=== PATIENT | male | born 1930 | race Caucasian/White ===

== ENCOUNTER 2016-11-01 09:19 | Emergency (ER) | payer MEDICARE ==
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
--- NOTE | 2016-11-01 11:27 | EDDOCDS ---
Physician Documentation [facility] Name: Julio Grant Age: 86 yrs Sex: Male : 1930 Arrival Date: 11/01/2016 Time: 09:19 Bed 13 Private MD: Tyrell Hoover Disposition: 11/01/16 11:03 Discharged to Home/Self Care. Impression: Syncope and collapse - near syncope. - Condition is Stable. - Discharge Instructions: Near-Syncope, Near-Syncope, Fbuz-[id number], Syncope, [id number]. - Medication Reconciliation, Local Pharmacy Hours form. - Follow up: Judi Curtis; When: keepscheduled appointment tomorrow. Follow up: Tyrell Hoover; When: Call to arrange an appointment. - Problem is new. - Symptoms are resolved. Historical: - Allergies: No known drug Allergies; - Home Meds: 1. atenolol 25 mg Oral tab 1 tab once daily 2. furosemide 80 mg Oral tab 1 tab once daily 3. digoxin 125 mcg oral tab 1 tab once daily 4. Crestor 10 mg Oral tab Saturday MWF 5. Coumadin 2 mg Oral tab 1 tab once daily 6. Xalatan 0.005 % Opht drop 1 drop once daily 7. Alphagan P 0.1 % ophthalmic drop 1 drop every 8 hours - PMHx: CAD; - PSHx: Stents, Coronary; Pacemaker Insertion; - Social history: Smoking status: Patient states was never smoker of tobacco. No barriers to communication noted, The patient speaks fluent Romanian, Speaks appropriately for age. - Family history: Not pertinent. - : The pt / caregiver states he / she is on anticoagulants: coumadin. Home medication list is obtained from the patient. - Exposure Risk Screening:: None identified. Vital Signs: 11/01 09:22 BP 159 / 93; Pulse 87; Resp 16; Temp 96.4(T); Pulse Ox 100% on R/A; Weight 64.64 kg / sew 142.51 lbs; Height 5 ft. 8 in. (172.72 cm); Pain 0/10; 11:24 BP 122 / 71; Pulse 85; Resp 20 S; Temp 96(T); Pulse Ox 96% on R/A; ms2 09:22 Body Mass Index 21.67 (64.64 kg, 172.72 cm) sew MDM: 10:22 CT Head Without Contrast Ordered. EDMS 10:58 Financial registration complete. lg Signatures: Dispatcher [employer] EDMS Tati Warner MD MD sd1 Lauro GuidryRN RN ms2 Brandie Pascal, Reg Reg lg Tiffanie Akers RN RN hs1 Roro ManuelRN RN ead MTDD
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
--- NOTE | 2016-11-03 12:27 | EDDOCDS ---
Physician Documentation [facility] Name: Julio Grant Age: 86 yrs Sex: Male : 1930 Arrival Date: 11/01/2016 Time: 09:19 Bed 13 Private MD: Tyrell Hoover Disposition: 11/01/16 11:03 Discharged to Home/Self Care. Impression: Syncope and collapse - near syncope. - Condition is Stable. - Discharge Instructions: Near-Syncope, Near-Syncope, [id number], Syncope, [id number]-[id number]. - Medication Reconciliation, Local Pharmacy Hours form. - Follow up: Judi Curtis; When: keepscheduled appointment tomorrow. Follow up: Tyrell Hoover; When: Call to arrange an appointment. - Problem is new. - Symptoms are resolved. Historical: - Allergies: No known drug Allergies; - Home Meds: 1. atenolol 25 mg Oral tab 1 tab once daily 2. furosemide 80 mg Oral tab 1 tab once daily 3. digoxin 125 mcg oral tab 1 tab once daily 4. Crestor 10 mg Oral tab Saturday MWF 5. Coumadin 2 mg Oral tab 1 tab once daily 6. Xalatan 0.005 % Opht drop 1 drop once daily 7. Alphagan P 0.1 % ophthalmic drop 1 drop every 8 hours - PMHx: CAD; - PSHx: Stents, Coronary; Pacemaker Insertion; - Social history: Smoking status: Patient states was never smoker of tobacco. No barriers to communication noted, The patient speaks fluent [place]inean, Speaks appropriately for age. - Family history: Not pertinent. - : The pt / caregiver states he / she is on anticoagulants: coumadin. Home medication list is obtained from the patient. - Exposure Risk Screening:: None identified. Vital Signs: 11/01 09:22 BP 159 / 93; Pulse 87; Resp 16; Temp 96.4(T); Pulse Ox 100% on R/A; Weight 64.64 kg / sew 142.51 lbs; Height 5 ft. 8 in. (172.72 cm); Pain 0/10; 11:24 BP 122 / 71; Pulse 85; Resp 20 S; Temp 96(T); Pulse Ox 96% on R/A; ms2 09:22 Body Mass Index 21.67 (64.64 kg, 172.72 cm) sew MDM: 10:22 CT Head Without Contrast Ordered. EDMS 10:58 Financial registration complete. lg 13:35 [facility] [place] Payment Agreement was scanned into [employer] and attached to record. lg 14:50 T-Sheet-- Draft Copy was scanned into [employer] and attached to record. gb Signatures: Dispatcher [employer] EDMS Tati Warner MD MD sd1 Lauro GuidryRN RN ms2 Aissatou Euceda, Reg Reg gb Brandie Pascal, Reg Reg lg Tiffanie Akers RN RN hs1 Roro Manuel RN RN ead The chart was reviewed and I authenticate all verbal orders and agree with the evaluation and treatment provided.Attachments: 13:35 [facility] [place] Payment Agreement lg 14:50 T-Sheet-- Draft Copy gb Chart Complete MTDD
--- NOTE | 2016-11-03 12:27 | EDDOCDS ---
Physician Documentation [facility] Name: Julio Grant Age: 86 yrs Sex: Male : 1930 Arrival Date: 11/01/2016 Time: 09:19 Bed 13 Private MD: Tyrell Hoover Disposition: 11/01/16 11:03 Discharged to Home/Self Care. Impression: Syncope and collapse - near syncope. - Condition is Stable. - Discharge Instructions: Near-Syncope, Near-Syncope, Kucv-[id number], Syncope, [id number]-dg-[id number]. - Medication Reconciliation, Local Pharmacy Hours form. - Follow up: Judi Curtis; When: keepscheduled appointment tomorrow. Follow up: Tyrell Hoover; When: Call to arrange an appointment. - Problem is new. - Symptoms are resolved. Historical: - Allergies: No known drug Allergies; - Home Meds: 1. atenolol 25 mg Oral tab 1 tab once daily 2. furosemide 80 mg Oral tab 1 tab once daily 3. digoxin 125 mcg oral tab 1 tab once daily 4. Crestor 10 mg Oral tab Saturday MWF 5. Coumadin 2 mg Oral tab 1 tab once daily 6. Xalatan 0.005 % Opht drop 1 drop once daily 7. Alphagan P 0.1 % ophthalmic drop 1 drop every 8 hours - PMHx: CAD; - PSHx: Stents, Coronary; Pacemaker Insertion; - Social history: Smoking status: Patient states was never smoker of tobacco. No barriers to communication noted, The patient speaks fluent Greenlandic, Speaks appropriately for age. - Family history: Not pertinent. - : The pt / caregiver states he / she is on anticoagulants: coumadin. Home medication list is obtained from the patient. - Exposure Risk Screening:: None identified. Vital Signs: 11/01 09:22 BP 159 / 93; Pulse 87; Resp 16; Temp 96.4(T); Pulse Ox 100% on R/A; Weight 64.64 kg / sew 142.51 lbs; Height 5 ft. 8 in. (172.72 cm); Pain 0/10; 11:24 BP 122 / 71; Pulse 85; Resp 20 S; Temp 96(T); Pulse Ox 96% on R/A; ms2 09:22 Body Mass Index 21.67 (64.64 kg, 172.72 cm) sew MDM: 10:22 CT Head Without Contrast Ordered. EDMS 10:58 Financial registration complete. lg 13:35 [facility] [place] Payment Agreement was scanned into [employer] and attached to record. lg 14:50 T-Sheet-- Draft Copy was scanned into [employer] and attached to record. gb Signatures: Dispatcher [employer] EDMS Tati Warner MD MD sd1 Lauro GuidryRN RN ms2 Aissatou Euceda, Reg Reg gb Brandie Pascal, Reg Reg lg Tiffanie Akers RN RN hs1 Roro Manuel RN RN ead The chart was reviewed and I authenticate all verbal orders and agree with the evaluation and treatment provided.Attachments: 13:35 [facility] [place] Payment Agreement lg 14:50 T-Sheet-- Draft Copy gb Chart Complete MTDD
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
== END 2016-11-01 11:26 | disposition home or self-care (01) ==
LOC: M ED 09:19
DX: R55 Syncope and collapse (principal); I25.10 Atherosclerotic heart disease of native coronary artery without angina pectoris; Z95.5 Presence of coronary angioplasty implant and graft; Z95.0 Presence of cardiac pacemaker; Z79.01 Long term (current) use of anticoagulants; Z79.899 Other long term (current) drug therapy

== ENCOUNTER 2017-03-17 11:45 | Inpatient (IN) | payer MEDICARE ==
[~2017-03-17] VITALS: Ht 172.7 cm; Wt 67.2 kg
[2017-03-17] VITALS (50 sets, daily range): BP systolic 85–181; BP diastolic 53–124; O2SAT 99
[2017-03-17] MEDS ORDERED: ATEN25TA PO (12:03)
[2017-03-17] MEDS ORDERED: CRES10TA32 PO (12:03)
[2017-03-17] MEDS ORDERED: WARF4TAB51 PO (12:03)
[2017-03-17] MEDS ORDERED: DIGO0.25 PO (12:03)
[2017-03-17] MEDS ORDERED: FURO80TA2 PO (12:03)
[2017-03-17] MEDS ORDERED: PRED10PA PO (12:03)
[2017-03-17] MEDS ORDERED: ASPI81TA85 PO (12:03)
[2017-03-17] MEDS ORDERED: NS 500 ML IV ONE (12:30)
--- NOTE | 2017-03-17 12:54 | REP ---
Chest one-view HISTORY: Shortness of breath Comparison: 07/15/2007 Increased density is present in the left lower lobe consistent with atelectasis or infiltrate. The right lung is clear. A small right pleural effusion is present. The cardiac silhouette is enlarged. The pulmonary vasculature is normal in appearance. A cardiac pacemaker is present. Impression: 1. Left lower lobe atelectasis or infiltrate and small pleural effusion. 2. Cardiomegaly. Signed by Alex Stevens MD 03/17/2017 12:45 P
[2017-03-17] MEDS ORDERED: fentaNYL 100 MCG/2 ML INJECTION (J3010) IV ONE ×2 (13:00→14:45)
[2017-03-17] MEDS ORDERED: ONDANSETRON 4MG/2ML VIAL (J2405) IV ONE (13:00)
[2017-03-17 13:02] LABS: BASO % 0.1 % (0.0-1.0); EOS % 0.3 % (0.0-3.0); LARGE UNSTAINED CELL # 0.1 K/mm3 (0.0-0.4); LARGE UNSTAINED CELL % 0.9 % (0.0-4.0); LYMPH # 0.6 K/mm3 (1.5-4.5); LYMPH % 6.4 % (24.0-44.0); MEAN CORPUSCULAR HEMOGLOBIN 28.8 pg (27.0-33.0); MEAN CORPUSCULAR HGB CONC 31.2 g/dl (32.0-36.5); MEAN CORPUSCULAR VOLUME 92.3 fl (80.0-96.0); MONO # 0.8 K/mm3 (0.0-0.8); MONO % 8.9 % (0.0-5.0); NEUTROPHILS # 7.5 K/mm3 (1.8-7.7); NEUTROPHILS % 83.4 % (36.0-66.0); PLATELET COUNT, AUTOMATED 338 k/mm3 (150-450); RED CELL DISTRIBUTION WIDTH 14.3 % (11.5-14.5); WHITE BLOOD COUNT 8.9 K/mm3 (4.0-10.0)
[2017-03-17 13:49] LABS: ABG BASE EXCESS -3.9 (-2.0-2.0); ABG HCO3 18.8 MEQ/L (22.0-26.0); ABG PARTIAL PRESSURE CO2 28.8 mmHg (35.0-45.0); ABG PARTIAL PRESSURE O2 84.9 mmHg (75.0-100.0); ABG STANDARD HCO3 21.2 MEQ/L (22.0-26.0); ABG TOTAL CO2 19.7 MEQ/L (23.0-31.0); ABG pH (ARTERIAL) 7.433 UNITS (7.350-7.450)
--- NOTE | 2017-03-17 14:33 | ECGEPIP ---
Stationary ECG Study [facility] - ED Test Date: 2017-03-17 Pat Name: RONY CROFT Department: Room: - Gender: M Manifest Clerk: tk : 1930 Requested By: BENJY Garcia Order Number: [id number] Reading MD: Tati Warner Measurements Intervals [place] Rate: 119 P: HI: 0 QRS: -57 QRSD: 116 T: 93 QT: 326 QTc: 460 Interpretive Statements ATRIAL FIBRILLATION WITH RAPID VENTRICULAR RESPONSE WITH ABERRANT CONDUCTION OR VENTRICULAR PREMATURE COMPLEXES LOW QRS VOLTAGE IN PRECORDIAL LEADS PATTERN CONSISTENT WITH PULMONARY DISEASE INCOMPLETE RIGHT BUNDLE BRANCH BLOCK LEFT ANTERIOR FASCICULAR BLOCK ST DEVIATION AND MODERATE T-WAVE ABNORMALITY, CONSIDER ANTERIOR ISCHEMIA NO PRIOR FOR COMPARISON Electronically Signed On 03-17-2017 14:33:27 EDT by Tati Warner
[2017-03-17] MEDS ORDERED: METOPROLOL 5 MG/5 ML VIAL IV STA ×2 (14:39→19:18)
[2017-03-17] MEDS ORDERED: PRED10TA2 PO (15:11)
[2017-03-17] MEDS ORDERED: ROSU20TA PO (15:11)
[2017-03-17 15:12] LABS: INR 11.19
[2017-03-17] MEDS ORDERED: DIGO0.12 PO (15:12)
[2017-03-17] MEDS ORDERED: DORZ2SOL5 OU (15:15)
[2017-03-17] MEDS ORDERED: LATA5OPD OU (15:15)
[2017-03-17 15:26] LABS: ALBUMIN 3.5 GM/DL (3.2-5.2); ALBUMIN/GLOBULIN RATIO 1.4 (1.00-1.93); BILIRUBIN,DIRECT 2.1 MG/DL (0.0-0.2); BILIRUBIN,TOTAL 4.3 MG/DL (0.2-1.0); CALCIUM LEVEL 8.9 MG/DL (8.8-10.2); CREATININE FOR GFR 1.42 MG/DL (0.70-1.30); GLOMERULAR FILTRATION RATE 50.1 (>35); POTASSIUM SERUM 4.5 MEQ/L (3.5-5.1)
[2017-03-17] MEDS ORDERED: ISOVUE-370 76% 100ML VIAL (Q9967) As Ordered ONE (15:28)
[2017-03-17] MEDS ORDERED: KCL 20MEQ IN D5/NS 1000ML 1,000 ML IV SCH (16:13)
[2017-03-17] MEDS ORDERED: BISACODYL 10 MG SUPP PR PRN (16:15)
[2017-03-17] MEDS ORDERED: NORCO, ANEXSIA 5/325MG TABLET (HYDROcodone/ACETAMINOPHEN) PO PRN (16:15)
[2017-03-17] MEDS ORDERED: PERCOCET 5MG/325MG TAB PO PRN ×2 (16:15)
[2017-03-17] MEDS ORDERED: ACETAMINOPHEN TAB 650MG DOSE (2X325MG) PO PRN (16:15)
[2017-03-17] MEDS ORDERED: LEVALBUTEROL 1.25 MG/0.5 ML CONCENTRATE NEB NEB PRN (16:15)
[2017-03-17] MEDS ORDERED: ONDANSETRON 4MG/2ML VIAL (J2405) IV PRN (16:15)
[2017-03-17] MEDS ORDERED: LIDOCAINE 2% JELLY 30 ML As Ordered ONE (16:26)
[2017-03-17] MEDS ORDERED: MIDAZOLAM INJ 2 MG/2 ML VIAL (J2250) As Ordered ONE (16:46)
[2017-03-17] MEDS ORDERED: FLUMAZENIL 0.5 MG/5 ML VIAL As Ordered ONE (16:46)
[2017-03-17] MEDS ORDERED: LIDOCAINE 1% MDV 20ML VIAL As Ordered ONE (16:47)
[2017-03-17] MEDS ORDERED: NOREPINEPHRINE 4 MG/4 ML AMP As Ordered ONE (17:05)
[2017-03-17] MEDS ORDERED: ETOMIDATE INJ 20MG/10ML VIAL As Ordered ONE ×2 (17:06→17:23)
[2017-03-17] MEDS ORDERED: ROCURONIUM BROMIDE 50 MG/5 ML VIAL/SYRINGE As Ordered ONE (17:07)
[2017-03-17] MEDS ORDERED: SUCCINYLCHOLINE INJ 200 MG/10 ML VIAL (J0330) As Ordered ONE (17:24)
[2017-03-17] MEDS ORDERED: REFRIGERATOR IV KEYS XX PRN (17:45)
[2017-03-17] MEDS ORDERED: MORPHINE 2 MG/ML 1ML SYRINGE IV PRN (17:45)
[2017-03-17] MEDS ORDERED: PHYTONADIONE 10MG/ML INJECTION (J3430) SC ONE (18:00)
[2017-03-17 18:27] LABS: ABG BASE EXCESS -4.5 (-2.0-2.0); ABG HCO3 19.8 MEQ/L (22.0-26.0); ABG PARTIAL PRESSURE CO2 34.4 mmHg (35.0-45.0); ABG PARTIAL PRESSURE O2 459.7 mmHg (75.0-100.0); ABG STANDARD HCO3 20.8 MEQ/L (22.0-26.0); ABG TOTAL CO2 20.8 MEQ/L (23.0-31.0); ABG pH (ARTERIAL) 7.377 UNITS (7.350-7.450)
[2017-03-17] MEDS ORDERED: ETOMIDATE INJ 20MG/10ML VIAL IV STA (18:43)
[2017-03-17] MEDS ORDERED: NS 1,000 ML IV ONE (18:45)
[2017-03-17] MEDS ORDERED: ROCURONIUM BROMIDE 50 MG/5 ML VIAL/SYRINGE IV ONE (18:45)
[2017-03-17] MEDS ORDERED: MIDAZOLAM INJ 2 MG/2 ML VIAL (J2250) IV ONE ×2 (19:00)
[2017-03-17] MEDS ORDERED: LIDOCAINE 1% MDV 20ML VIAL SC ONE (19:00)
[2017-03-17] MEDS ORDERED: MIDAZOLAM HCL 100 MG in D5W 80 ML IV SCH (19:00)
[2017-03-17 19:18] LABS: TOTAL PROTEIN, BODY FLUID 4.7 G/DL (NOT ESTABLISHED)
[2017-03-17 19:25] LABS: LDH, BODY FLUID 3471 U/L (NOT ESTABLISHED)
--- NOTE | 2017-03-17 19:32 | HPE ---
DATE OF ADMISSION: 03/17/2017 This is a critical care history and physical. CRITICAL CARE TIME: Two hours. This excludes all procedures. HISTORY OF PRESENT ILLNESS: I met Mr. Grant in the intensive care unit (ICU) after being called by the hospitalist service. He was quite short of breath and Dr. Hudson was attempting an urgent procedure. Therefore, his history was taken from his family members after his stabilization. His daughter and son-in-law were present to provide history as they brought him to the emergency room for increased shortness of breath. He has been more short of breath over the past few days. His daughter states that he has always been short of breath for least 4-5 years; however, was maintaining his own home. He was able to chop wood. He has had a decrease in appetite and the biggest change in his appearance was his weight loss. Apparently he has seen his primary care who placed him on prednisone for possible respiratory issues. He had a nonproductive cough. He has had chronic lower extremity edema. His daughter states that she did not believe his edema was any worse than it had been. She felt that today he appeared weaker and "smaller than usual." No other medical history can be obtained from the family, from the history of present illness (HPI) or the patient as he was intubated during the procedure for pericardiocentesis. He was found to have a large pericardial effusion, some hypotension with low voltage QRS on electrocardiogram (EKG). It was felt that he had pending tamponade. He had clear evidence of decreased cardiac output with decreased vascular perfusion. In the emergency room (ER), it was also found his international normalized ratio (INR) was above 11. He was intubated during the procedure for decreased respirations. PHYSICAL EXAMINATION: VITAL SIGNS: Temperature initially was 97.4. Pulse is ranging one-teens to 130s. Respiratory rate 15-20, blood pressure 119-124 systolic the and averaging 61-82 diastolic. Pulse oximetry is 97% on 100% FIO2. He is having large amounts of dark urine output. GENERAL: Sedated on mechanical ventilation. Pupils equal and react to light. Mucous membranes are moist without lesions. Tongue is midline. NECK: Supple. No tracheal deviation or mass. There is a subcutaneous 3-4 cm lesion under the left occiput. I suspect this is a lipoma. CHEST: He has a right subclavian in place, a left pacer. There is a left pericardial tube draining dark bloody fluid. PULMONARY: Clear to auscultation anteriorly. No rhonchi or wheeze. Some dullness at the bases. ABDOMEN: Scaphoid, soft, nontender, nondistended. There is discernible hepatosplenomegaly and elevated jugular venous pulse. Central venous pressure (CVP) is elevated. EXTREMITIES: Decreased perfusion. Cool, dusky, dark purple to black extremities. Some increased perfusion after the pericardiocentesis. There is pitting edema to the level of his mid calf. No rash, no evidence of cellulitis. MUSCULOSKELETAL: Has significant muscle wasting. No evidence of fracture or joint effusion. No evidence of recent trauma. NEUROLOGIC: No unilateral weakness, tremor or evidence of seizure activity. LABORATORY DATA: Laboratory evaluation shows a sodium 135, potassium 4.5, chloride 97, bicarb of 26, BUN of 51, creatinine 1.42 with a lactic acid of 6.5. This is prior to pericardiocentesis. Total bilirubin is 4.3, direct bilirubin is also elevated at 2.1, AST is 306, ALT 232, alkaline phosphatase 177 with ammonia 16. INR is significantly elevated at 11.2. Hemoglobin is 15.2, hematocrit of 48.7 with platelet count of 338. White blood cell count is 8.9 with 83% neutrophilia. Initial arterial blood gas shows a pH of 7.43, pCO2 of 29 with a pAO2 of 85. After pericardiocentesis and intubation, blood gas showed 7.38, pCO2 of 34 and a pO2 of 459. A CVO2 is 70.5. IMAGING: Most recent chest x-ray from 03/17/2017 at 06:10 p.m., shows that the endotracheal tube is high. Subclavian line is in place with the tip at the superior vena cava (SVC). The pacer appears to be a single lead pacer, is in place in the right ventricle. I do not visualize any significant infiltrate on the right. The left costophrenic angle is blunted. Chest CT shows bilateral pleural effusion, distended esophagus. I do not see any evidence of pulmonary embolism. There is a large pericardial effusion. There is also significant hepatic congestion. Echocardiogram estimates a very low ejection fraction of approximately 20%. Complete echocardiogram was not performed as we were more interested in the tamponade physiology. IMPRESSION: 1. Respiratory failure. Will continue mechanical ventilation overnight and perform spontaneous breathing trial in the morning. This was acute respiratory failure secondary to cardiogenic shock. 2. Pericardial effusion: differential includes malignancy, heart failure, trauma, and infection. Because of his weight loss I am highly suspicious of malignancy. 2. Cardiogenic shock. Will continue to monitor for need for inotropic agent; however, with normal SVO2 and blood pressure, no further IV therapy was given. At this point in time, cardiology is addressing rate control due to his atrial fibrillation with rapid ventricular rate (RVR). 3. Systolic dysfunction. Will continue to monitor urine output. 4. Lactic acidosis likely secondary to decreased cardiac output. Appears to already have improved based on the arterial blood gas post pericardiocentesis. 5. Elevated liver function tests (LFTs) likely secondary to passive congestion and may have been the cause of his right upper quadrant pain. 6. Elevated INR treated with fresh frozen plasma (FFP) and vitamin K. Critical care time as mentioned above. This excludes all procedures. MTDD
[2017-03-17 19:37] LABS: TNC PERICARDIAL FLUID 2201 cells/uL (0-20)
[2017-03-17 19:38] LABS: RBC PERICARDIAL FLUID 1466 mm3/uL
[2017-03-17 19:42] LABS: BF DIFF IF INDICATED? YES (NO)
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
[2017-03-17] MEDS ORDERED: LEVALBUTEROL 1.25 MG/0.5 ML CONCENTRATE NEB NEB SCH (20:00)
[2017-03-17] MEDS ORDERED: DIGOXIN INJ 0.5 MG/2 ML AMP (J1160) IV SCH (20:00)
[2017-03-17 20:06] LABS: CC BF DIFF EXAM UNSPUN
[2017-03-17] MEDS: IPRATROPIUM 0.5MG/ALBUTEROL 2.5MG INH SOL UD 3ML (DUONEB)(J7620) NEB SCH (20:24)
[2017-03-17] MEDS: CHLORHEXIDINE GLUCONATE 0.12 % 15ML UDC (PERIDEX ORAL RINSE) MT SCH (20:37)
[2017-03-17] MEDS: PANTOPRAZOLE 40MG INJ (PROTONIX) (C9113) IV SCH (20:37)
--- NOTE | 2017-03-17 20:59 | CR ---
DATE OF CONSULTATION: 03/17/2017 The patient is seen at the request of Dr. Lutz of the emergency room emergently. The patient has been found to have a very large pericardial effusion and has peripheral cyanosis. He is very short of breath. HISTORY OF PRESENT ILLNESS: The patient's history was not taken prior to undertaking an emergency pericardiocentesis under sedation. During sedation, he exhibited very shallow breathing and it was felt that the safest course was to intubate him temporarily. Therefore, history was not obtained by myself from the patient. History that has been obtained has been from the family. His daughter and son-in-law accompanied him. The patient is an 86-year-old white male who these past few days has becoming more short of breath. Three days ago his family offered to take him to the emergency room and he declined. This morning he called his family asking them if they could take him. Over the past few weeks he has had a dry, nonproductive cough. The cough has been quite persistent. The family does not know if he has had fever, but does say that he was chilly. They state that over the last week or so he has not eaten at all and has decreased appetite. He has never mentioned that food gets stuck in his esophagus. They had noted that he has lost weight over the past few months. His shortness of breath is such that he could not speak in full sentences. The family does not think that he has had any chest pain. PAST MEDICAL HISTORY: 1. Atrial fibrillation on Coumadin. 2. Hypercholesterolemia. 3. Coronary artery disease, status post stenting procedure in the early . 4. 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 PAST SURGERIES: None that the family knows of other than the coronary artery stents and the pacemaker insertion. HOME MEDICATIONS: - aspirin 81 mg daily - Lasix 80 mg daily - atenolol 25 mg at night - warfarin 2 mg at night - prednisone 10 mg daily, evidently started recently but for unknown reasons and by an unknown doctor - digoxin 0.125 mg daily - latanoprost one drop at night both eyes - Timolol one drop both eyes twice a day TRAVEL HISTORY: He has been to [place] a number of times and to the [facility] and [place]. EXPOSURES: No dogs, cats, birds at home, although his daughter, whom he visits quite often, does have birds. HABITS: Does not smoke. Does not drink. He has never been a smoker. FAMILY HISTORY: Very strong family history in two brothers and his father who of colon cancer. OCCUPATIONAL HISTORY: Not obtained at this point in time. REVIEW OF SYSTEMS: Again, this is per the family. CONSTITUTIONAL: See history of present illness. EYES: Without known transient monocular blindness or prior jaundice. NOSE: Without epistaxis. MOUTH: Has his own teeth. RESPIRATORY: See history of present illness. CARDIAC: See history of present illness. GASTROINTESTINAL: See history of present illness. No reported nausea or vomiting, diarrhea or constipation. The family does not know if he has had melena or hematochezia. It does not sound if he has had actual dysphagia but rather decreased appetite. GENITOURINARY: Unknown. ENDOCRINE: Without diabetes. Without thyroid disease. NEUROLOGIC: Without paresthesia, paralyses or prior seizures. PSYCHIATRIC: Without pathological anxieties, depression, or psychoses. PHYSICAL EXAMINATION: A cachectic, ill, white male, short of breath and with cyanotic extremities. VITAL SIGNS: In the emergency room, his vital signs were recorded at 1305 hours of blood pressure 109/78 with a heart rate of 118, which is varying between 118 and 150, respiratory rate of 18, but when I have seen him it was more in the high 20s. He was 97% on room air upon presentation. His temperature in the intensive care unit (ICU) is 97.4. HEAD: Normocephalic. EYES: Pupils are equal and reactive. Extraocular motions look intact and there is no jaundice. NOSE: Without deformity. MOUTH: Has his own teeth. NECK: Jugular venous distention. RESPIRATORY: Shows equal breath sounds on either side. Breath sounds were very distant. I hear no wheezing. CARDIAC EXAM: Shows very faint heart sounds. I cannot detect murmurs, clicks, gallops or rubs. I cannot feel his PMI. ABDOMEN: After the initial procedure is soft and nontender; however, he is sedated and paralyzed. Bowel sounds are absent. EXTREMITIES: Show 3 to 4+ ankle edema. I do not feel peripheral pulses. I cannot Doppler peripheral pulses. Dr. Camp reported good popliteal pulses, which I confirmed. His skin is mottled and cool. PSYCHIATRIC: Shows him to be sedated. NEUROLOGIC: Shows him to be sedated and paralyzed. His white count is 8.9 with a hemoglobin and hematocrit of 15.2 and 48.7 and platelet count of 338. Differential shows 83% neutrophils, 6% lymphocytes, 8% monocytes. There are no immature forms. No toxic granulations. His chemistries show essentially normal electrolytes with a BUN and creatinine of 51 and 1.42 with a glucose of 110. Calcium is 8.9 with a corresponding albumin of 3.5. Total bilirubin is 4.3 with a direct of 2.1. AST and ALT are both elevated at 306 and 232. His troponin is 0.03. Lipase is 161. His PT/INR are 86 and 11.19, respectively, with a PTT of 58. His digoxin level is still pending. Blood gases in the emergency room showed a pH of 7.43, PCO2 of 28 and a PO2 of 84. His base excess was -3.9. After intubation, pH is 7.37 and PCO2 of 34, PO2 of 459 with a base excess of -4.5. His chest CT confirms a very large pericardial effusion. There is very little opacity in the peripheral vasculature, including the aorta. The liver is filled with contrast. He has what looks to be a subcapsular hematoma over the liver. I do not see any pulmonary masses. There are no emphysematous changes. There is no paratracheal or mediastinal lymphadenopathy. His esophagus is filled with air proximally. I do not appreciate an esophageal mass at this point in time. I do not see any liver metastases. Adrenals are intact. Kidneys do not fill and neither does the distal aorta, as noted above. IMPRESSION: 1. Large pericardial effusion and pending tamponade. 2. Coronary artery disease. 3. Congestive heart failure (CHF) or at least right failure. 4. According to Dr. Camp, severe tricuspid regurgitation. 5. Hypercholesterolemia. 6. 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 7. Possible hepatic failure secondary to hypotension. 8. Renal insufficiency, mild. PLAN AND DISCUSSION: First order of business will be to relieve him of his pericardial effusion. I will therefore undertake a pericardiocentesis under echo control. After that we can ascertain the cause of the effusion. We also suspect that this is going to be a bloody pericardial effusion. If it is, it will either be malignant or it could be from a simple bleed from his coagulopathy. He has, up until recently, been a very active man, but has deteriorated over the last few months and there may be a hidden malignancy. He certainly has a very strong family history of colon cancer. I do not see any liver metastases, however, where one would expect colon cancer to first metastasize. His lactate is increased secondary to poor perfusion secondary to poor cardiac output secondary to his impending tamponade. I do not think that he is septic, nor does he need antibiotic therapy. I have ordered FFP to reverse the coagulopathy , but will not wait for the infusions prior to undertaking the tube pericardiostomy. Clinically he is hypoperfused as manifested by his cool mottled skin, orthopnea and dyspnea. MTDD
[2017-03-17] MEDS ORDERED: DOCUSATE SODIUM 100 MG CAP PO SCH (21:00)
[2017-03-17] MEDS: METOPROLOL TART 25 MG TABLET PO SCH (21:46)
[2017-03-17] MEDS: DIGOXIN INJ 0.5 MG/2 ML AMP (J1160) IV SCH (21:50)
[2017-03-17 22:27] LABS: INR 2.65
[2017-03-18] VITALS (30 sets, daily range): BP systolic 88–117; BP diastolic 51–72; O2SAT 98–100
[2017-03-18] MEDS: DIGOXIN INJ 0.5 MG/2 ML AMP (J1160) IV SCH (03:44)
[2017-03-18] MEDS: METOPROLOL TART 25 MG TABLET PO SCH ×4 (05:26→23:24)
[2017-03-18 05:43] LABS: BASO % 0.1 % (0.0-1.0); LARGE UNSTAINED CELL # 0.1 K/mm3 (0.0-0.4); LARGE UNSTAINED CELL % 0.7 % (0.0-4.0); LYMPH # 0.6 K/mm3 (1.5-4.5); LYMPH % 5.4 % (24.0-44.0); MEAN CORPUSCULAR HEMOGLOBIN 29.9 pg (27.0-33.0); MEAN CORPUSCULAR HGB CONC 32.7 g/dl (32.0-36.5); MEAN CORPUSCULAR VOLUME 91.3 fl (80.0-96.0); MONO # 0.8 K/mm3 (0.0-0.8); NEUTROPHILS # 8.9 K/mm3 (1.8-7.7); NEUTROPHILS % 85.8 % (36.0-66.0); PLATELET COUNT, AUTOMATED 300 k/mm3 (150-450); RED CELL DISTRIBUTION WIDTH 14.5 % (11.5-14.5); WHITE BLOOD COUNT 10.3 K/mm3 (4.0-10.0)
[2017-03-18 06:02] LABS: BILIRUBIN,DIRECT 2.6 MG/DL (0.0-0.2); BILIRUBIN,TOTAL 4.3 MG/DL (0.2-1.0); CALCIUM LEVEL 8.7 MG/DL (8.8-10.2); CREATININE FOR GFR 1.33 MG/DL (0.70-1.30); POTASSIUM SERUM 4.3 MEQ/L (3.5-5.1)
--- NOTE | 2017-03-18 06:06 | ECHO ---
DATE OF PROCEDURE: 03/17/2017 REFERRING PHYSICIAN: Lesley Lutz MD INDICATION: Dyspnea. The study was performed in the emergency room on 03/17/2017. HEIGHT: 68 inches. WEIGHT: 70 kg. DIMENSIONS: IVS: 1.1 LV: 3.5 LVPW: 1.1 LA: 3.9 Aorta: 3.4 LVOT: 2.1 FINDINGS: The study is of acceptable technical quality even though is was not completed because of emergency nature of the situation. Left ventricle is of normal size and there is severe global hypokineses. I estimate EF around 20%. Right ventricle is dilated and hypokinetic as well. Both atria are severely enlarged. There is an artifact consistent with pacemaker electrode apparent in right-sided heart chambers. Aortic valve is sclerotic but otherwise has preserved mobility. There are also degenerative abnormalities of mitral valve. Tricuspid and pulmonic valves appear normal. There is large circumferential pericardial effusion with largest diameter exceeding 3 cm. I do not appreciate any diastolic collapse of any of four cardiac chambers. Inferior vena cava was not well seen. Doppler interrogation reveals no significant aortic stenosis and trace insufficiency. There is mild, possibly mild to moderate mitral insufficiency and at least moderate if not worse tricuspid insufficiency. Pulmonic valve was functionally competent. There is a variation of mitral inflow velocities, but does not seem to be more than approximately 30% CONCLUSIONS: 1. Large circumferential pericardial effusion but without signs of cardiac tamponade. 2. Severe left ventricular systolic dysfunction. 3. Dilated right-sided heart chambers. 4. At least moderate tricuspid insufficiency. 5. Unable to estimate central venous pressure. 6. At least moderate pulmonary hypertension. 7. Left pleural effusion. Comment: SBE prophylaxis is not recommended. MTDD
--- NOTE | 2017-03-18 06:09 | RO ---
DATE OF PROCEDURE: 03/17/2017 PREOPERATIVE DIAGNOSIS: Respiratory distress/arrest. POSTOPERATIVE DIAGNOSIS: Respiratory distress/arrest. PROCEDURE: Endotracheal intubation. SURGEON: Dr. Irving Tucker BOX HINGE AND LOCK ATTACHER:None ANESTHESIA/MEDICATIONS: 20mg of etomidate, 100mg of rocuronium. DESCRIPTION OF PROCEDURE: I was managing the patient's oxygenation as the patient was having a pericardiocentesis performed. He was receiving Versed. He had pausing in his breathing and then had very shallow respirations. It was deemed at that point in time urgent to intubate. He was starting to have oxygen desaturations to 88%. He was bagged and I used rapid sequence intubation to intubate. After placing the patient in the supine position with a sniffing alignment, the etomidate was pushed followed by rocuronium. The airway was cleared of secretions. There was a grade 1 view. An 8.0 endotracheal tube was easily placed through the vocal cords with confirmation of placement with end-tidal CO2, auscultation, and chest x-ray. After intubation, due to his recent respiratory distress, ultrasound was used to confirm that there was no evidence of pneumothorax due to the recent pericardiocentesis on the left. There was no evidence of pneumothorax. The patient was placed on mechanical ventilation without any observed complications. LEONEL
[2017-03-18 06:13] LABS: ABG HCO3 24.9 MEQ/L (22.0-26.0); ABG PARTIAL PRESSURE CO2 37.7 mmHg (35.0-45.0); ABG PARTIAL PRESSURE O2 141.9 mmHg (75.0-100.0); ABG STANDARD HCO3 25.4 MEQ/L (22.0-26.0); ABG TOTAL CO2 26.1 MEQ/L (23.0-31.0); ABG pH (ARTERIAL) 7.438 UNITS (7.350-7.450)
--- NOTE | 2017-03-18 06:15 | REP ---
CT ANGIO CHEST: HISTORY: Shortness of breath. CONTRAST: Isovue 370, 75 mL. There are no filling defects in the main right and left pulmonary arteries or their branches. Areas of atelectasis or infiltrate are present in the lower lobes. Mild size bilateral pleural effusions are present larger on the right than on the left . A calcified granuloma is present in the right upper lobe. Small lymph nodes less than 1 cm in size are present in the mediastinum. A large pericardial effusion is present. The cardiac silhouette is enlarged. IMPRESSION: 1. There is no pulmonary embolism. 2. Bibasilar atelectasis or infiltrates. 3. Mild size pleural effusions larger on the right than on the left. 4. Large pericardial effusion. Signed by Alex Stevens MD 03/18/2017 08:22 A
--- NOTE | 2017-03-18 06:26 | REP ---
CT ABDOMEN AND PELVIS WITH CONTRAST: HISTORY: Left upper quadrant pain. A subcapsular hematoma is present along the anterior aspect of the liver. This measures 10.2 cm in transverse by 3.5 cm in AP dimensions. A punctate calcification is present in the spleen. The pancreas, adrenal glands and kidneys are normal in appearance. There is no mass or adenopathy. There is enlargement of the inferior vena cava secondary to a large pericardial effusion. Areas of bibasilar atelectasis or infiltrate are present in the lower lobes. Bilateral pleural effusions are present. CT PELVIS: The urinary bladder is normal in appearance. The prostate gland is enlarged. There is no mass, adenopathy or free fluid. Degenerative change is present in the spine. IMPRESSION: There is enlargement of the prostate gland. Signed by Alex Stevens MD 03/18/2017 08:23 A
--- NOTE | 2017-03-18 06:28 | RO ---
DATE OF PROCEDURE: 03/17/2017 PREPROCEDURE DIAGNOSIS: Pericardial effusion, impending tamponade. POSTOPERATIVE DIAGNOSIS: Pericardial effusion, impending tamponade. PROCEDURE: Pericardiocentesis and tube pericardiostomy under echocardiographic control. SURGEON: Dr. Jayro Hudson LOG PEELER: ANESTHESIA: FINDINGS: The pericardium drained 1400 mL of bloody pericardial effusion. The echocardiogram showed the effusion to disappear during and after drainage of the effusion. PROCEDURE: Under moderate sedation achieved with 2 mg of Versed, the patient was prepped and draped in the usual sterile fashion. By holding the echo probe in one hand and the echo probe in the other, the pericardium and effusion could be found. A wire was placed through the needle once obtaining pericardial fluid. The tract was dilated and a tube pericardiostomy was placed percutaneously. The remainder of the fluid was drained into a Keller catheter bag. It was sent for the requisite hematologies, cytologies, chemistries and bacteriologies. The pericardiostomy tube was sutured to the chest wall with two #3-0 silk sutures. Half way during the procedure, the patient started to become apneic and it was felt that the safest thing to do was to go ahead and intubate him, which Dr. Tucker did at the head of the bed. LEONEL
--- NOTE | 2017-03-18 06:44 | RO ---
DATE OF PROCEDURE: 03/17/2017 PREPROCEDURE DIAGNOSIS: Need for vascular access, potential pressor therapy and cardiac monitoring. POSTPROCEDURE DIAGNOSIS: Need for vascular access, potential pressor therapy and cardiac monitoring. PROCEDURE: Insertion of right subclavian central line. SURGEON: Dr. Jayro Hudson TOBACCO FARMWORKER: ANESTHESIA: PROCEDURE: The patient's right subclavian fossa was prepped and draped in the usual sterile fashion. It was infiltrated with 1% Xylocaine and the vein was found on the first pass. The tract was dilated and a triple lumen catheter was placed by Seldinger technique. The ports were aspirated and flushed without difficulty and the catheter was secured to the chest wall with two #3-0 silk sutures. The patient tolerated the procedure well and a chest x-ray is pending.
[2017-03-18 06:45] LABS: DIGOXIN LEVEL 5.1 NG/ML (0.5-2.0)
[2017-03-18] MEDS: IPRATROPIUM 0.5MG/ALBUTEROL 2.5MG INH SOL UD 3ML (DUONEB)(J7620) NEB SCH ×4 (07:18→19:46)
--- NOTE | 2017-03-18 07:59 | IPN ---
DATE: 03/18/2017 Mr. Grant had a relatively uneventful night. He remains sedated, intubated. He maintained his blood pressure reasonably well and his heart rate has become much better controlled after he has received digoxin and metoprolol. I was called by the intensive care unit (ICU) nurse early this morning because his early digoxin level came back at 5.1. It is after his level yesterday was barely detectable and he received a total of 0.75 mg overnight. He does not have any signs of toxicity. He did not have any extreme bradycardia, complete heart block or ventricular ectopy. The patient is sedated, intubated. Blood pressure 95/60. Heart rate has been in the 80s and 90s. He is afebrile. Saturation is 98% on 40% FIO2. Fluid balance yesterday was about 1200 positive. He made about 230 mL urine overnight. Weight is 65.5. His jugular venous pulse (JVP) is still high, but not as high as yesterdays, it was in 20s. Lungs are relatively clear to auscultation with good air movement. There is a dressing over his chest overlying the pericardial drain, but I do not appreciate any rub on a somewhat limited exam due to difficult access. He continues to have drainage, but not overly copious, less than 100 mL. Abdomen soft, nontender. Extremities have 2+ edema. Peripheral pulses are detectable, but still very poor. There is still prominent cyanosis of both feet. Popliteal pulses are of good quality. Laboratory-barr, CBC is normal. Basic metabolic panel reveals potassium 4.3, BUN 52, creatinine 1.3 for a GFR of 54 and glucose 119. Troponin is 0.37. Bilirubin is 2.6. INR is 2.6. Digoxin level came back 5.1 ASSESSMENT/PLAN: Mr. Grant is an 86-year-old man who has chronic ischemic heart disease, chronic atrial fibrillation and single chamber pacemaker. He presented with very large pericardial effusion in the setting of coagulopathy and underwent pericardiocentesis yesterday by Dr. Hudson with removal of 1400 mL of bloody fluid. He was quite tachycardiac initially and consequently we used a combination of digoxin and metoprolol for rate control. I am somewhat reluctant to believe that just 0.75 mg of digoxin would raise his level from barely detectable to over 5 and consequently asked the ICU nurse to redraw the level one more time. It is theoretically possible that there was some residual digoxin in his central line after the last dose was given. I do not believe that we need to intervene in the form of Digibind. He does not have any signs of toxicity and consequently even if repeated level is similarly high, besides not giving him additional digoxin I do not believe any further intervention in this at this moment is necessary. Otherwise, his remaining management from a cardiac perspective did not change. Dr. Juárez takes over his care today.
[2017-03-18 08:32] LABS: ALBUMIN/GLOBULIN RATIO 1.11 (1.00-1.93); BILIRUBIN,DIRECT 2.4 MG/DL (0.0-0.2); TOTAL PROTEIN 5.7 GM/DL (6.4-8.2)
--- NOTE | 2017-03-18 08:46 | REP ---
Portable chest x-ray: AP semi-erect view. History: Respiratory failure. Comparison study March 17, 2017. Findings: A left pleural drainage catheter is seen at the left base unchanged. Cardiomegaly is observed. Left hemidiaphragm is not well seen. Endotracheal tube remains in good position. NG tube enters the left upper quadrant as before. A right subclavian catheter terminates in the expected location of the superior vena cava. There is diffuse osteopenia. No new infiltrate. Signed by Bin Ang MD 03/18/2017 12:57 P
[2017-03-18] MEDS ORDERED: MOM 30ML SUSPENSION UDC PO SCH (09:00)
[2017-03-18] MEDS ORDERED: PANTOPRAZOLE 40MG TAB (PROTONIX) PO SCH (09:00)
[2017-03-18 09:07] LABS: DIGOXIN LEVEL 3.3 NG/ML (0.5-2.0)
--- NOTE | 2017-03-18 09:16 | REP ---
CHEST, ONE VIEW: HISTORY: Line placement. COMPARISON: 5:42 p.m., 03/17/2017. Increased density is present in the left lower lobe consistent with atelectasis or infiltrate. Small bilateral pleural effusions are present. The cardiac silhouette is enlarged. The pulmonary vasculature is normal in appearance. An ET tube, pericardial drain and central line are present. The central line is present in the superior vena cava. There is no definite pneumothorax. IMPRESSION: 1. Left lower lobe atelectasis or infiltrate, unchanged compared to the previous study. 2. Small bilateral pleural effusions, unchanged compared with the previous study. 3. Cardiomegaly. 4. The patient is status post central line placement. There is no definite pneumothorax. Signed by Alex Stevens MD 03/18/2017 09:22 A
--- NOTE | 2017-03-18 09:18 | REP ---
CHEST, ONE VIEW: HISTORY: Pericardial drain. COMPARISON: 1243 pm 03/17/2017 Increased density is present in the left lower lobe consistent with atelectasis or infiltrate. The right lung is clear. Bilateral pleural effusions are present. The cardiac silhouette is enlarged. The pulmonary vasculature is normal in appearance. A pericardial drain and NG tube are present. IMPRESSION: 1. Left lobe atelectasis or infiltrate. 2. Small bilateral pleural effusions. 3. Cardiomegaly. Signed by Alex Stevens MD 03/18/2017 09:21 A
[2017-03-18] MEDS: PANTOPRAZOLE 40MG INJ (PROTONIX) (C9113) IV SCH (09:40)
[2017-03-18] MEDS: CHLORHEXIDINE GLUCONATE 0.12 % 15ML UDC (PERIDEX ORAL RINSE) MT SCH ×2 (09:40→21:20)
--- NOTE | 2017-03-18 09:43 | ECGEPIP ---
Stationary ECG Study [facility] Test Date: 2017-03-17 Pat Name: RONY CROFT Department: Room: [place] [address] Gender: M Field Adjuster: BILLY : 1930 Requested By: Dee Camp Order Number: [id number] Reading MD: Mt Young Measurements Intervals [place] Rate: 149 P: [place]: 0 QRS: -57 QRSD: 137 T: 111 QT: 313 QTc: 493 Interpretive Statements ATRIAL FIBRILLATION WITH RAPID VENTRICULAR RESPONSE Rate increased from 12:58 tracing of same day Solitary PVC RIGHT BUNDLE BRANCH BLOCK LEFT ANTERIOR FASCICULAR BLOCK MODERATE T-WAVE ABNORMALITY, CONSIDER LATERAL ISCHEMIA Electronically Signed On 03-18-2017 9:43:43 EDT by Mt Young
--- NOTE | 2017-03-18 09:46 | ECGEPIP ---
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
--- NOTE | 2017-03-18 10:38 | CCN ---
DATE OF SERVICE: 03/18/2017 CRITICAL CARE TIME: Was 1 hour. This excludes all procedures. SUBJECTIVE: At the patients' bedside rounding this morning, the patient is on sedation vacation. Has had no neurologic awareness. My plan is once he awakes to place him on a spontaneous breathing trial to see if he can tolerate extubation. He has remained in atrial fibrillation (AFib) overnight with a heart rate ranging 80-102, now on metoprolol and loaded with digoxin. His urine output has been more than adequate, currently at 50 mL an hour. His lower extremities remain cool and dusky. However, his upper extremities are fairly well perfused with good radial pulse. He has had no ventricular arrhythmias overnight. Pericardial tube continues to drain bloody fluid. Cytology and Gram stain are still pending. The remainder of the pericardial fluid appears to have a normal pH of 7.4. The pericardial fluid is exudative hemorrhagic fluid, lymphocytic in nature. PHYSICAL EXAMINATION: Central venous pressure is 14. It does vary with respirations. Blood pressure is 95/60 with a mean arterial pressure of 72, pulse is ranging 80-102, respiratory rate of 16, oxygen saturation is 94% on 0.40 FiO2. Intake and output (I and O): 3160 in and 1980 out. General: The patient is sedated on mechanical ventilation. No purposeful movements as of yet. HEENT: Sclerae clear and anicteric. Pupils are pinpoint but reactive to light. Mucous membranes are moist. Teeth are in fair condition. Endotracheal tube is in place. Neck: Supple. No tracheal deviation. No mass. Lymph: No cervical, supraclavicular, or axillary adenopathy. There is a subcutaneous lesion in his left occiput, which is likely a lipoma. The chest wall significantly cachectic. Clear to auscultation without rales, rhonchi, or wheezes. Distant heart sounds but irregularly irregular without murmur, rub, or gallop. Pericardial tube is in place. Abdomen is scaphoid, soft, nontender, with a palpable liver edge. Extremities: Dusky lower extremities with some venous stasis ulcers. There is pitting edema in the lower extremities. There are good radial pulses bilaterally that are symmetric. I believe the dorsalis pedis is more prominent on the left leg than on the right leg. Skin: As mentioned above. Musculoskeletal: Significant muscle wasting. No evidence of fracture or joint effusion. Neurologic: No unilateral weakness or tremor. No seizure activity. LABORATORY EVALUATION: Shows a white blood cell count of 10.3, hemoglobin 14.1, hematocrit of 43.0, platelet count of 300, glucose is 119. Sodium is 138, potassium 4.3, chloride is 99, bicarbonate 27, BUN of 52, creatinine of 1.33. Arterial blood gas this morning shows a pH 7.43, PCO2 of 38, pAO2 of 142 on an FiO2 of 0.40. 4-hour lactate is down to 3.8. INR is down to 2.65. Chest x-ray shows cardiomegaly with very minimal pleural effusion, left greater than right. No significant infiltrate. Subclavian line is in place with the tip in the superior vena cava (SVC). Endotracheal tube is slightly high, and orogastric (feeding) (OG) tube is in place. Single lead pacer is also in place in the right ventricle. Liver function testing shows AST is now elevated to 537, ALT of 328, alkaline phosphatase is 143, with a total bilirubin of 4.0, and a direct bilirubin of 2.4 , albumin is 3.0. IMPRESSION: 1. Acute respiratory failure secondary to cardiogenic shock and pending tamponade. The patient's arterial blood gas is okay on mechanical ventilation this morning. I am waiting for return of awareness so that I could perform a spontaneous breathing trial. Will attempt extubation later today if he passes spontaneous breathing trial. 2. Pericardial effusion. Continuing to drain lymphocytic hemorrhagic fluid. Differential includes malignancy, along with a bleed. At this point in time, I do not believe this is infectious. However, Gram stain is pending. 3. Acute liver injury. Although this may be secondary to passive hepatic congestion from the severe pulmonary hypertension, I will obtain a right upper quadrant ultrasound. 4. Mild renal impairment. Good urine output at this point in time. No need for intervention. 5. Atrial fibrillation with rapid ventricular response (RVR). Currently, fairly well rate controlled. Heart rate is now down to 80-102 rather than 160. 6. Congestive heart failure. Estimated ejection fraction is low. However, may need to repeat echocardiogram after there has been some recovery. 7. Cachexia. Albumin is 3.0. Will start feeds as soon as the patient is extubated or will start tube feeds if the patient remains on mechanical ventilation. 8. Deep venous thrombosis (DVT) prophylaxis. The patient's international normalized ratio (INR) is still 2.65. Will continue with heparin when his INR falls below 2. 9. Gastrointestinal (GI) prophylaxis with Protonix. CRITICAL CARE TIME: Was 1 hour. This excludes all procedures. MTDD
--- NOTE | 2017-03-18 14:11 | REP ---
RIGHT UPPER QUADRANT SONOGRAPHY: HISTORY: Acute liver injury. Elevated bilirubin. Comparison CT study is from March 17, 2017. FINDINGS: Scanning through right upper quadrant of the abdomen demonstrates mild ascites in the upper abdomen. The intrahepatic and subhepatic inferior vena cava are dilated. Some right pleural effusion is seen as on CT. No subcapsular hematoma could be visualized sonographically. No focal liver lesion is seen. The gallbladder shows diffuse moderate gallbladder wall thickening. The gallbladder orientation is somewhat atypical anterior to the liver. This may correspond to the CT findings. Common bile duct is normal measuring 0.4 cm in greatest diameter. Limited views of the pancreas show no abnormality. No right renal abnormality is seen. The right kidney measures 10.0 x 5.5 x 4.1 cm. IMPRESSION: Mild ascites. Dilated hepatic veins and inferior vena cava consistent with right heart failure. There is marked gallbladder wall thickening with sludge in the gallbladder. No stone is seen. Question small polyp in the gallbladder. Signed by Bin Ang MD 03/18/2017 04:46 P
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
[2017-03-18] MEDS: MIDAZOLAM INJ 2 MG/2 ML VIAL (J2250) IV PRN ×3 (19:44→23:24)
[2017-03-19] VITALS (24 sets, daily range): BP systolic 87–132; BP diastolic 55–88
[2017-03-19] MEDS: MIDAZOLAM INJ 2 MG/2 ML VIAL (J2250) IV PRN ×2 (01:21→05:23)
[2017-03-19 05:46] LABS: BASO % 0.1 % (0.0-1.0); EOS % 0.1 % (0.0-3.0); LARGE UNSTAINED CELL # 0.1 K/mm3 (0.0-0.4); LARGE UNSTAINED CELL % 0.7 % (0.0-4.0); LYMPH # 0.5 K/mm3 (1.5-4.5); LYMPH % 3.8 % (24.0-44.0); MEAN CORPUSCULAR HEMOGLOBIN 29.1 pg (27.0-33.0); MEAN CORPUSCULAR HGB CONC 31.6 g/dl (32.0-36.5); MEAN CORPUSCULAR VOLUME 91.9 fl (80.0-96.0); MONO # 0.8 K/mm3 (0.0-0.8); MONO % 7.1 % (0.0-5.0); NEUTROPHILS # 9.9 K/mm3 (1.8-7.7); NEUTROPHILS % 88.2 % (36.0-66.0); PLATELET COUNT, AUTOMATED 275 k/mm3 (150-450); RED CELL DISTRIBUTION WIDTH 14.6 % (11.5-14.5); WHITE BLOOD COUNT 11.2 K/mm3 (4.0-10.0)
[2017-03-19 06:07] LABS: INR 6.6
[2017-03-19 06:08] LABS: CALCIUM LEVEL 8.9 MG/DL (8.8-10.2); CREATININE FOR GFR 1.26 MG/DL (0.70-1.30); GLOMERULAR FILTRATION RATE 57.5 (>35); POTASSIUM SERUM 4.2 MEQ/L (3.5-5.1)
[2017-03-19 06:18] LABS: DIGOXIN LEVEL 1.5 NG/ML (0.5-2.0)
[2017-03-19] MEDS ORDERED: PHYTONADIONE INJection 5 MG in NS 50 ML IV ONE (06:45)
[2017-03-19] MEDS: METOPROLOL TART 25 MG TABLET PO SCH ×3 (06:55→17:09)
--- NOTE | 2017-03-19 07:42 | IPN ---
DATE: 03/18/2017 Mr. Grant is still sedated. Sedation was turned off today at 8 o'clock. He was sedated with Versed. He has not yet woken up to extubate him. He has had a physiologically fairly stable night. His vitals signs show a T-max of 99.3 with a heart rate that ranges between 90 and 109 in atrial fibrillation. His heart rate yesterday was in the 150-160 range. He is still on the ventilator on assist control, on 40% FiO2 with a total volume of 340 mL and 5 PEEP with a ventilatory support rate of 14. At that he is riding the ventilatory. He is 98-96% saturated on 40% FiO2 and his blood pressures are now ranging between 89/67 to 112/56. His intake and output over the past 24 hours has been recorded as 3160 in and 1980 out for a positivity of 1180 mL. He has only put out 80 mL from intrapericardial chest tube overnight. Weight today is 65.5 kg compared to 64.9 kg yesterday. PHYSICAL EXAMINATION: He has equal breath sounds on either side laterally. Percussion is full to the diaphragm anterior laterally. Cardiac exam shows and irregular rate and rhythm. I do not hear any murmurs, clicks, gallops, or rubs from the noise is the ventilator. I cannot feel his point of maximal impulse (PMI), but he does have a prominent epigastric pulsation. I do not feel a mass, however. There are no rubs. S1, S1 are normal. Abdomen is soft, nontender. Bowel sounds are hypoactive, but positive. He does response when I push on his abdomen. Extremities show no pretibial edema, but he does have a 1+ pretibial edema. His skin is cool and still mottled and cyantoic at the digit tips. His knees are not as mottled today. He is dry. Neck is supple. I do not detect jugular venous distention. No subcutaneous emphysema. Trachea is midline. Mouth shows his mucous membranes to be pink and moist. Lips and commissures are without lesions. I cannot seen far enough back to gmat instructor venous thrush. Eyes are equal and reactive to light. Extraocular movements are noted to be intact. Sclerae nonicteric. Neurologic shows him to be completed sedated, but does move spontaneously. Psychiatric shows him to be sedated. His white count is 10.3 with a hemoglobin and hematocrit of 14.1 and 43.0 and a platelet count of 300. Differential shows 85% neutrophils, 5% lymphocytes, 8% monocytes. There are no immature forms and no toxic granulations. His electrolytes are normal with a BUN and creatinine of 52 and 1.33, improved from 51 and 1.42 yesterday. Lactic acid is down to 3.8 yesterday evening from 6.5. Calcium is 8.7 with a glucose of 119. AST and ALT are 537 and 328 up from yesterday's of 306 and 232. Troponins show an increase to 0.37. Albumin is 3.0. PT/INR is 28.3 and 2.65, improved from 86 and 11.9 after 3 units of fresh frozen plasma (FFP). Blood gases today show a pH of 7.43, CO2 of 37, pO2 of 141 on a ventilator with the above settings. Base excess is 1.0, improved from -4.5 yesterday. His pericardial fluid has come back with a pH of 7.40 with an LDH of 3471 compared to a history of LDH of 837. He shows 2200 nucleate cells, 9 of which are neutrophils, 75% are lymphocytes, and 16 are monocytes. Pathology is pending. Microbiology showed only a few white cells with no organisms seen. IMPRESSION: 1. Pericardial effusion with impending tamponade. 2. Hypoperfusion secondary to poor cardiac output. 3. Atrial fibrillation now rate controlled. 4. Coumadin coagulopathy, improved back to therapeutic range. 5. Coronary artery disease status post stenting procedures. 6. Tachybrady syndrome status post pacemaker insertion. 7. Renal insufficiency, improving. 8. Hepatic injury secondary to hypoperfusion. 9. Severe tricuspid regurgitation. 10. Congestive heart failure (CHF). PLAN AND DISCUSSION: I will continue the pericardial tube for another day. Hopefully he will be able to extubate later today or early tomorrow. His PT/INR is back in therapeutic range. We will have for cytologies although this is an exudative limited effusion. It really is unclear whether this is a simple bleed secondary to his Coumadin coagulopathy or whether this is an underlying malignancy. I am surprised given how cachectic he is how good his albumin is, on admission was 3.5.
[2017-03-19] MEDS: IPRATROPIUM 0.5MG/ALBUTEROL 2.5MG INH SOL UD 3ML (DUONEB)(J7620) NEB SCH ×4 (07:52→19:36)
[2017-03-19] MEDS: PANTOPRAZOLE 40MG INJ (PROTONIX) (C9113) IV SCH (08:37)
[2017-03-19] MEDS: CHLORHEXIDINE GLUCONATE 0.12 % 15ML UDC (PERIDEX ORAL RINSE) MT SCH (08:37)
--- NOTE | 2017-03-19 08:47 | REP ---
PORTABLE CHEST X-RAY: Single view. HISTORY: Respiratory failure. Comparison chest x-ray March 18, 2017. FINDINGS: EKG monitoring electrodes overlie the chest. A unipolar pacemaker is seen in the right heart via the left side. A left pleural drainage catheter is noted at the left base. There is evidence of bilateral pleural effusions, left greater than right. The left pleural opacity appears a little more prominent today than on previous study. NG tube enters left upper quadrant. Endotracheal tube is seen in good position at the level of the transverse aorta. There is a right subclavian line with its tip in the expected location of the superior vena cava. IMPRESSION: Cardiomegaly and bilateral effusions left greater than right. No new infiltrate. Endotracheal, nasogastric left pleural drainage, and right subclavian catheters as above. Signed by Bin Ang MD 03/19/2017 02:49 P
[2017-03-19 09:50] LABS: ALBUMIN 2.8 GM/DL (3.2-5.2); ALBUMIN/GLOBULIN RATIO 1.4 (1.00-1.93); BILIRUBIN,DIRECT 3.1 MG/DL (0.0-0.2); BILIRUBIN,TOTAL 4.8 MG/DL (0.2-1.0); TOTAL PROTEIN 4.8 GM/DL (6.4-8.2)
--- NOTE | 2017-03-19 10:12 | CCN ---
DATE OF SERVICE: 03/19/2017 CRITICAL CARE TIME: Was 45 minutes. The patient was slow to recover from sedation. All sedation was removed. This morning, he is having purposeful movements. He is not yet opening his eyes to command but does shake his head yes and no to certain questions. I did place him on pressure support at 5/5, and he is tolerating this well currently. My plan is to wait for increased awareness and then attempt extubation today. Overnight, he did have some increased heart rate. His metoprolol was adjusted by cardiology. I believe there are plans for repeat echocardiogram today due to his systolic and diastolic dysfunction and severe pulmonary hypertension. He has had decent urine output. He has only had 12-13 mL drained from the pericardial tube. Oxygen saturation is 99% on 0.30 FiO2. PHYSICAL EXAMINATION Temperature is 98.1, pulse is 94-120, atrial fibrillation, respiratory rate of 16, blood pressure is 92/58, with an oxygen saturation of 99% on 0.30 FiO2. General: The patient is moving, sitting up in bed occasionally. Has purposeful movements. Not yet opening his eyes to commands. He does have fairly good spontaneous breaths on pressure control. HEENT: Pupils are small, approximately 3 mm, but reactive. Mucous membranes are moist without lesions. Tongue is midline. Endotracheal tube is in place. Neck is supple. No tracheal deviation or mass. Cardiac: Irregularly irregular without audible murmur, rub, or gallop. There is elevated jugular venous pressure (JVP). Good carotid upstroke. Variable volume secondary to atrial fibrillation. Pulmonary: Clear to auscultation without rales, rhonchi, or wheezes. A few basilar rales. Abdomen is soft, nontender, nondistended. No hepatosplenomegaly. There is significant lower extremity edema. Chronic venous stasis discoloration. Skin: Without rash, otherwise. There are a few ulcers on his lower extremities. Musculoskeletal: Significant muscle wasting. LABORATORY EVALUATION: Shows a total bilirubin of 4.0, total bilirubin (T Bili) of 2.4. Arterial blood gas shows a pH of 7.44, pCO2 of 38, pO2 of 142. White blood cell count 11.2, hemoglobin 14.1, hematocrit of 44.5, with a platelet count of 275, neutrophilia of 88%. Sodium is 140, potassium is 4.2, chloride is 102, bicarbonate is 33, BUN is 47, creatinine is 1.26, glucose is 96, with calcium of 8.9. Chest x-ray shows prominent pulmonary arteries and cardiomegaly with pericardial tube in place. No significant infiltrate. Endotracheal tube slightly high. Single pacer lead is in place. The right subclavian line is in place with the tip of the catheter in the superior vena cava (SVC). IMPRESSION: 1. Acute hypoxic respiratory failure. The patient currently on spontaneous breathing trial. Will attempt extubation. 2. Pericardial effusion. No evidence of infection in the pericardial fluid. Cardiology believes it is most likely secondary to pulmonary hypertension. Malignancy remains in the differential. 3. Diastolic and systolic dysfunction. The plan is for a followup transthoracic echocardiogram (TTE) with cardiology following. 4. Atrial fibrillation (AFib) with rapid ventricular response (RVR). Currently , fairly well rate controlled with metoprolol and digoxin. 5. Coronary artery disease. No evidence of ongoing ischemia. 6. Renal impairment. Has good urine output without any change in the admission creatinine. 7. Acute liver injury, likely secondary to decreased perfusion verses passive congestion. Will repeat a liver profile this morning. The plan is for extubation. Overall, given his cardiac status, prognosis is guarded. Critical care time, as mentioned above. This excludes all procedures. [facility]
--- NOTE | 2017-03-19 14:32 | REP ---
Portable chest, 12/04 p.m., 03/19/2017, single AP view the patient sitting: Comparison is 03/19/2017. There is a feeding tube traversing the mediastinum with the tip terminating in the abdominal left upper quadrant. The endotracheal tube has been removed. There is a left subclavian central venous catheter with the tip in the right atrium, unchanged. Cardiomegaly and bilateral pleural effusions are again identified, unchanged. A left pleural drainage catheter is again noted, unchanged. Pacemaker is unchanged. Signed by Brendon Lomeli MD 03/19/2017 02:24 P
--- NOTE | 2017-03-19 16:15 | ECGEPIP ---
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
[2017-03-19] MEDS: ACETAMINOPHEN TAB 650MG DOSE (2X325MG) PO PRN (17:09)
--- NOTE | 2017-03-19 21:10 | IPN ---
CARDIOLOGY PROGRESS NOTE: 03/19/2017 SUBJECTIVE: The patient is currently extubated and breathing on his own. Appears awake, but confused and not communicating with any meaningful speech. OBJECTIVE: Elderly male of medium body build moaning unintelligibly. Heart rate 98-110 beats per minute (BPM) and irregular, blood pressure 128/62, respiratory rate at 20 per minute, O2 saturation 98% on supplemental oxygen by nasal prongs 2 liters. Afebrile. Weight today remains stable at 65.8 kg. Slightly negative fluid balance yesterday. Ongoing peripheral/cyanosis, but no central cyanosis. Normal oral moisture. Trachea midline. Neck veins remain elevated at least 10 cm above the sternal angle. Normal carotid upstrokes, but variable volume as before. Bibasilar dullness, reduced air entry with prolonged expiration, but no audible wheeze at this time. Apical impulse lateral to mid clavicular line intercostal space. Heart sounds remains somewhat distant with intermittent audible pericardial rub. Ongoing distal lower leg and sacral pitting edema. monitor and storage bin tender: Underlying atrial fibrillation with improved control of ventricular response. EKG: Tracing taken earlier today again shows atrial fibrillation with controlled ventricular response and somewhat improved QRS voltages post pericardial fluid drainage. Left anterior hemiblock, right bundle branch block. Portable upright chest x-ray: Study reviewed today does not appear significantly changed from the study yesterday. LABORATORY DATA: Hemoglobin stable at 14.1. Slight leukocytosis 11.2. Normal platelet count. PT/INR today was 57/6.6 up from 28 and 2.65 yesterday. Electrolytes this morning showed a slight metabolic alkalosis, BUN slightly improved at 47, creatinine slightly improved at 1.26, fasting glucose 96, total bilirubin remains elevated at total of 4.8 and direct bilirubin 3.1. Transaminases have improved. Alkaline phosphatase has also slightly improved. Troponin I remains indeterminate but is slightly less than yesterday. Albumin at 2.8. Digoxin level today is 1.5, not toxic as we would expect, waiting 24 hours from the last dose administration. Will plan on resuming digoxin tomorrow morning. IMPRESSION/PLAN: 1. Atrial fibrillation (chronic): Ventricular response improved. Extubated off the mechanical ventilator on his current digoxin and metoprolol. I believe he will adequately controlled rate with his customary medications, digoxin 0.125 mg daily and metoprolol 25 mg twice a day. Anticoagulation remains on hold in light of his marked hypoprothrombinemia. I have given him a dose of vitamin K1 IV this morning. A followup PT/INR will be obtained tomorrow. 2. Abnormal EKG/left anterior hemiblock, with right bundle branch block/single chamber pacemaker in situ: As mentioned QRS voltage has increased post pericardial fluid drainage. Pacemaker is essentially on standby with spontaneous QRS complexes. 3. Heart failure (systolic and diastolic/chronic): At the present point, I believe he is essentially at his dry weight. Has known severe pulmonary hypertension and elevated neck veins. I will be reviewing his echocardiogram/Doppler study performed earlier today. Will continue off his chronic Lasix therapy for now. 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 Markedly dilated atria. In the absence of any left ventricle hypertrophy, significant valvular abnormality or localized wall motion abnormality to account for his findings. At his age with the degree of his pulmonary hypertension with right heart failure and dementia, his prognosis is extremely guarded. 5. Coronary disease (lovelock vessel)/post LAD stenting: No serial ST/T-wave changes. Troponin I indeterminate because of his renal insufficiency. Remains on beta-norris therapy alone. 6. Hypertension (Central): Current blood pressure is well-controlled on metoprolol alone. Has evidence of slightly improving renal insufficiency. 7. Pericardial effusion (chronic)/post pericardial drainage: Continues to have chest tube/pericardial tube in situ especially with his impressive ongoing hypoprothrombinemia. Followup echocardiogram was performed and I will review this personally. I will continue to monitor him with you and appreciate the opportunity to participate in his care.
[2017-03-20] VITALS (31 sets, daily range): BP systolic 93–156; BP diastolic 54–118
[2017-03-20] MEDS: METOPROLOL TART 25 MG TABLET PO SCH ×4 (00:10→17:50)
[2017-03-20] MEDS: ACETAMINOPHEN TAB 650MG DOSE (2X325MG) PO PRN (02:58)
[2017-03-20 05:49] LABS: BASO % 0.1 % (0.0-1.0); EOS % 0.3 % (0.0-3.0); LARGE UNSTAINED CELL # 0.1 K/mm3 (0.0-0.4); LARGE UNSTAINED CELL % 0.8 % (0.0-4.0); LYMPH # 0.6 K/mm3 (1.5-4.5); LYMPH % 4.4 % (24.0-44.0); MEAN CORPUSCULAR HEMOGLOBIN 30.2 pg (27.0-33.0); MEAN CORPUSCULAR HGB CONC 32.3 g/dl (32.0-36.5); MEAN CORPUSCULAR VOLUME 93.3 fl (80.0-96.0); MONO # 0.8 K/mm3 (0.0-0.8); MONO % 7.1 % (0.0-5.0); NEUTROPHILS # 9.6 K/mm3 (1.8-7.7); NEUTROPHILS % 87.3 % (36.0-66.0); PLATELET COUNT, AUTOMATED 235 k/mm3 (150-450); RED CELL DISTRIBUTION WIDTH 14.8 % (11.5-14.5)
--- NOTE | 2017-03-20 05:51 | IPN ---
DATE: 03/19/2017 Mr. Grant was extubated earlier this morning. He is still rather somnolent. He does respond to pain particularly taking tape off his pericardial tube. He does look a lot less mottled today and in fact, his toes are pink. His vital signs show a T-max of 98.2 with a heart rate that ranges between 83 and 120 in atrial fibrillation with blood pressures ranging between 90/56 to 132/78. His respiratory rate is 20 to 24 without the use of accessory muscles. He is 96-100% saturated on 2 liters nasal cannula and an FiO2 of 28-35%. Intake and output over the past 24 hours has been recorded as 116 in and 972 out for a negativity of 856 mL. He has put 12 mL out the pericardial tube. His weight today is 65.8 kg compared to 65.5 kg yesterday. PHYSICAL EXAMINATION: I cannot sit him up. He does have equal breath sounds on either side, although I hear rales and rhonchi. It is not a very satisfactory lung examination. Cardiac exam shows much more audible heart sounds today. I do not detect rubs but there is a systolic murmur heard at the left lower sternal border. S1 and S2 appear normal. Abdomen is soft, nontender, bowel sounds are positive but hypoactive. There is no hepatomegaly. No CVA tenderness. Extremities show 1-2+ pretibial edema. His knees are no longer mottled and his toes are pink. There is no differential swelling of the upper extremities. Skin is still cool but dry. As noted above, there is no mottling of his knees and no severe cyanosis of his digits. Neck is supple. There is no jugular venous distention. No subcutaneous emphysema. Trachea is midline. Mouth shows his mucous membranes to be dry but pink. There is no thrush. Lips and commissures are without lesions. Eyes show his pupils to be equal and reactive. Extraocular motor intact. Sclera anicteric. Neuro shows gross motor and gross sensation intact. Gait of course is not tested. Psychiatric shows him to be somnolent and still rather confused. His white count today is 11.2 with hemoglobin and hematocrit of 14.1 and 44.5 with a platelet count of 275. Differential shows 88% neutrophils, 3% lymphocytes, 7% monocytes. There are no immature forms. No toxic granulations. His electrolytes are normal with a marginally high total CO2 of 33. BUN and creatinine are 47 and 1.26 which continue to improve. Glucose is 96 with a calcium of 8.9 and an albumin of 2.8. AST and ALT are starting to improve at 299 and 280 respectively. His INR is back to 6.6 with a PT of 57. His blood gases show a pH of 7.43, pCO2 of 37 and pO2 of 141 with a base excess of 1.0. Digoxin level is now up to 1.5. Pericardial fluid was discussed yesterday. The cell block does not show any malignant cells. His chest x-ray today done portably after extubation shows a haze in the lower right hemithorax probably consistent with his known small pleural effusion. There is cephalization of vessels on the portable. There is no lateral film. Pericardial tube is in good place. I see no other overt infiltrates. IMPRESSION: 1. Pericardial effusion with impending tamponade resolved. 2. Hypoperfusion secondary to poor cardiac output resolved. 3. Atrial fibrillation now rate controlled. 4. Coumadin coagulopathy, worse today but certainly better than it was on admission. 5. Coronary artery disease status post stenting procedures. 6. Tachybrady syndrome status post pacemaker insertion. 7. Renal insufficiency, improving. 8. Hepatic injury secondary to hypoperfusion improving. 9. Severe tricuspid regurgitation. 10. Congestive heart failure (CHF). PLAN AND DISCUSSION: I will remove his pericardial tube today. An echocardiogram is being done today and I have not yet reviewed it nor do I know the results. Dr. Juárez informs me that he has very high pulmonary artery pressures and right heart failure which would certainly not be unexpected.
[2017-03-20 05:57] LABS: INR 2.05
[2017-03-20 06:10] LABS: ANION GAP 7 MEQ/L (8-16); BLOOD UREA NITROGEN 37 MG/DL (7-18); CALCIUM LEVEL 8.6 MG/DL (8.8-10.2); CARBON DIOXIDE LEVEL 31 MEQ/L (21-32); CHLORIDE LEVEL 105 MEQ/L (98-107); CREATININE FOR GFR 1.02 MG/DL (0.70-1.30); GLOMERULAR FILTRATION RATE > 60.0 (>35); GLUCOSE, FASTING 81 MG/DL (83-110); POTASSIUM SERUM 4.1 MEQ/L (3.5-5.1); SODIUM LEVEL 143 MEQ/L (136-145)
[2017-03-20] MEDS: IPRATROPIUM 0.5MG/ALBUTEROL 2.5MG INH SOL UD 3ML (DUONEB)(J7620) NEB SCH ×4 (07:30→19:52)
[2017-03-20] MEDS: PANTOPRAZOLE 40MG INJ (PROTONIX) (C9113) IV SCH (08:53)
--- NOTE | 2017-03-20 09:01 | ECHO ---
DATE OF PROCEDURE: 03/19/2017 AGE: 86 GENDER: Male HEIGHT: 68 inches WEIGHT: 145 pounds BODY SURFACE AREA: 1.79 m2 PATIENT LOCATION: Inpatient, ICU, room 3205 REFERRING PHYSICIAN: Haroldo Juárez MD CC: Irving Tucker MD CC: Jayro Hudson INDICATION: Post pericardial drainage. 2D MEASUREMENTS: RV: 5.0 CM Right ventricular free wall thickness: 0.8 cm LV: 3.9 cm Septum: 1.2 cm Posterior wall: 1.1 cm Aortic root: 3.5 cm LA: 4.7 cm LVEF: 45 - 50% DOPPLER MEASUREMENTS: AV: 0.9 m/s LVOT: 0.5 m/s LVOT diameter: 2.0 cm MV-E: 61 Early mitral deceleration time: 232 ms E prime: 7.6, E/E prime ratio: 8.1 PV: 0.5 m/s Pulmonary artery acceleration time: 49 ms RVSP: 57 mmHg IVC: 2.7 cm COMMENTS: Underlying atrial fibrillation with controlled ventricular response. Right bundle branch block. Prominently dilated left atrium, but normal left ventricular size. At least moderately dilated right ventricle and markedly dilated right atrium. Left ventricle (LV) wall thickness was upper limits of normal to marginally hypertrophied. Right ventricular free wall thickness was also increased. On real-time imaging from the parasternal and apical projections there was obvious septal wall motion abnormality with cross-sectional area showing a "D shape". Septal wall thickening was appropriate and other wall motion was normal. Right ventricular free wall motion appeared to be adequate. Mild mitral annular thickening with adequate leaflet excursion and no posterior systolic buckling. Three equal size aortic cusps with mildly thickened cusp edges, but adequate cusp separation with slight premature cusp closure. Slightly reduced aortic root excursion in keeping with a reduced forward stroke volume. Normal aortic root size. Pacing lead visualized traversing right heart structures. Some very small persistent pericardial effusion with moderately large left pleural effusion. Color flow Doppler study taken from the parasternal and apical projections showed severe tricuspid insufficiency, moderate mitral insufficiency and very mild aortic insufficiency. Guided continuous wave Doppler of his aortic valve showed a normal peak systolic velocity against LV outflow tract obstruction. Pulsed and continuous wave Doppler of his LV inflow tract taken from the apical four-chamber projection showed normal diastolic filling velocities against mitral stenosis. There was only early diastolic/passive filling as we would expect with atrial fibrillation. Her early mitral deceleration time was prolonged suggestive of a degree of impaired LV diastolic function. Current estimated mean left atrial pressure using pulsed and tissue Doppler of his mitral annulus was normal. Pulsed and continuous wave Doppler of his pulmonary trunk showed a normal peak systolic velocity against RV outflow tract obstruction. His pulmonary artery acceleration time was markedly abbreviated consistent with significantly elevated pulmonary vascular resistance. Guided continuous wave Doppler of his tricuspid valve allowed our estimation of his right ventricular systolic pressure (severely increased). His inferior vena cava was prominently dilated with absent respiratory collapse consistent with right heart failure and central venous pressure of at least 20 mmHg. CONCLUSIONS: 1. Dramatic reduction in pericardial effusion post drainage. 2. Persistent moderately large left pleural effusion. 3. Normal left ventricular size with wall thickness upper limits of normal and obvious septal wall motion abnormality related to right ventricular pressure overload. Global left ventricular systolic function would be considered at least mild to moderately impaired given the degree of mitral insufficiency (a normal left ventricle ejection fraction here would be 65%). 4. Moderately prominent left atrial enlargement with current estimated mean left atrial pressure within normal limits. 5. Moderately dilated and hypertrophied right ventricle with adequate wall motion. 6. Doppler evidence of severe pulmonary hypertension. 7. Markedly dilated right atrium and at least moderately dilated inferior vena cava with absent respiratory collapse consistent with right ventricular failure and markedly elevated central venous pressure. 8. Aortic valvular sclerosis without stenosis and very mild insufficiency. 9. Mild mitral annular calcification with mild to moderate insufficiency. 10. Normal appearing tricuspid valve with severe insufficiency. The above findings show a significant reduction in pericardial effusion and improvement in global left ventricular systolic function from prior study March 17, 2017.
[2017-03-20] MEDS ORDERED: DIGOXIN INJ 0.5 MG/2 ML AMP (J1160) IV ONE ×2 (09:15→11:00)
--- NOTE | 2017-03-20 09:41 | REP ---
Portable chest, single AP view, the patient semi upright, 07:05 a.m., 03/20/2017: Comparison 03/19/2017. The feeding tube and a left subclavian central venous catheter remain in satisfactory locations, unchanged. Cardiomegaly and pacemaker are again noted, unchanged. The previous left pleural drainage catheter has been removed. There is no pneumothorax. There is increased density in the right base suggestive of effusion and/or infiltrate, or combination, unchanged. The density in the left base has decreased. The mid and upper lung zones remain clear. Signed by Brendon Lomeli MD 03/20/2017 09:32 A
--- NOTE | 2017-03-20 10:58 | IPN ---
DATE: 03/20/2017 CARDIOLOGY PROGRESS NOTE SUBJECTIVE: The patient unfortunately, is unable to apparently comprehend any questioning or make any meaningful response to stimulation beyond incoherent moaning. OBJECTIVE: Elderly male of medium body build, not appearing in any acute pain, but as mentioned, moaning incoherently. Has not received any form of sedation for days now. Heart rate 110-120 bpm and irregularly irregular, blood pressure 121/60 supine, respiratory rate 18 per minute, O2 saturation 96% on supplemental oxygen by nasal prongs. Afebrile. His weight today is 2 kg less than yesterday with a negative fluid balance of 807 mL yesterday without diuretic therapy. Normal oral moisture. No central cyanosis. No current peripheral cyanosis. Trachea midline. Neck veins remain elevated approximately 8-10 cm above the sternal angle. Has bibasilar dullness and reduced air entry with few bibasilar inspiratory crepitations. Continues to have obvious lower lumbar and sacral pitting. His lower extremity pitting is now down to approximately one-third of the way up both lower legs. Continues to have some peripheral cyanosis. 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 I have resumed his digoxin today and have given him least one dose of digoxin IV. CHEST X-RAY: Portable study taken this morning reviewed independently shows again is obvious cardiomegaly despite this portable technique. Appears to have improved air entry over both lower lung hwang. His pacemaker and pacing leads are stable in position. His pericardial drainage tube has been removed. No pulmonary venous congestion. LABORATORY DATA: Hemoglobin stable at 11.1. White blood cell count is also stable at 11,000. Normal platelet count. His PT/INR today is down to 23/2.05 following his IV vitamin K yesterday. Chemistry confirms electrolyte balance with improving BUN and creatinine, BUN down to 37, creatinine down to 1.0, fasting glucose was 81. IMPRESSION/PLAN: 1. Atrial fibrillation (chronic): As mentioned ventricular response is somewhat rapid at this time. With his improved renal function, I am restarting his digoxin therapy. In light of his complicated pericardial effusion, I am somewhat reluctant to resume oral anticoagulation in this gentleman for least several weeks at a minimum. 2. Abnormal EKG/left anterior hemiblock with right bundle branch block/single chamber pacemaker in situ: His QRS morphology on monitor strip is unchanged. His pacemaker is functioning primarily on standby sensing his spontaneous QRS complexes. 3. Heart failure (systolic and diastolic/chronic): As mentioned, I believe she is currently at his functional dry weight. We do not expect his right heart failure to improve beyond his present level. His followup echocardiogram/Doppler studies yesterday showed an improved left ventricular systolic performance with controlled ventricular response to his atrial fibrillation. There was only marginal residual pericardial effusion, but an obvious left pleural effusion. His estimated mean left atrial pressure was actually normal. He continues to have severe pulmonary hypertension and right heart failure. His mitral insufficiency remains mild to moderate. 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 Echocardiographic findings as described are very consistent with this diagnosis. With his advanced age, severe pulmonary retention, right heart failure and dementia, his prognosis remains quite guarded. 5. Coronary disease ([place] vessel)/post LAD stenting: No followup EKG or troponin I level was obtained today. Remains on metoprolol to control his ventricular response. 6. Hypertension (essential): Current blood pressure control with metoprolol alone. His renal function has significantly improved with his controlled ventricular response to atrial fibrillation. I suspect one of the reasons for his decompensation on presentation was medication noncompliance as his digoxin level was not recordable and his ventricular response was very fast. 7. Pericardial effusion (chronic)/post pericardial drainage: Chest tube/pericardial drainage tube was removed. As mentioned, his echocardiogram shows no more than marginal residual pericardial effusion. As mentioned, we plan on keeping him off oral anticoagulation for least the next several weeks. At this point, I believe it is safe for him to be transferred out of the ICU. I am confident his ventricular response to his atrial fibrillation will be controlled with combination digoxin 0.125 mg daily and metoprolol 50 mg b.i.d. I will continue to follow him for the time being.
--- NOTE | 2017-03-20 16:13 | CCN ---
DATE: 03/20/2017 Mr. Grant remains confused at bedside requiring a sitter to avoid harming himself. He is at least speaking words today which is an improvement from yesterday. He answers some yes or no questions, yesterday was mostly only moaning incoherently. He denies any pain. He answers good to the question "how is your breathing?" He unfortunately barely ever opens his eyes. PHYSICAL EXAMINATION: Temperature is 98.9, pulse is 105, respiratory rate is 18, blood pressure is 121/75. Oxygen saturation is 99% on two liters. GENERAL: The patient is voicing some words, still confused, delirious. HEENT: Sclerae are clear and anicteric. Mucous membranes are moist without lesions. Tongue is midline. Fair dentition. NECK: Supple. No tracheal deviation or mass. LYMPHATICS: No cervical, supraclavicular or axillary adenopathy. CARDIAC: Fairly well rate controlled with an irregularly irregular rhythm. Point of maximal impulse (PMI) is displaced. Jugular venous pulse (JVP) is elevated. He continues to have lower extremity edema with poor peripheral circulations and some peripheral cyanosis. PULMONARY: Clear to auscultation without rales, rhonchi or wheezes. He has some basilar dullness at the left base. Very few basilar rales. ABDOMEN: Soft, nontender, nondistended. No hepatosplenomegaly. No masses or hernia. He continues to have significant edema in the extremities and sacrum. EXTREMITIES: As mentioned above. MUSCULOSKELETAL: Significant muscle wasting. SKIN: No rashes or jaundice or bruising. LABORATORY EVALUATION: Shows a white blood cell count of 11.0, hemoglobin of 14.1, platelet count of 235, neutrophilia of 87. Sodium is 143, potassium 4.1, chloride is 105, bicarbonate of 31, BUN of 37, creatinine 1.02 with a glucose of 81, calcium is 8.6, total bilirubin is 4.8, INR is 2.05. Chest x-ray today shows a left subclavian line in place. No evidence of pneumothorax. Increased density in the right base, probable effusion. No dense infiltrate. IMPRESSION: 1. Acute encephalopathy and delirium, likely from medication administration and benzodiazepine and age. We will continue to withhold all medications that could potentially affect his mental status. He does have some improvement between yesterday and today. I expect further improvement as drugs wear off. 2. Atrial fibrillation. Fairly well rate controlled on metoprolol. Cardiology following and appreciate their input. 3. Restrictive cardiomyopathy. 4. Hypertension. Well-controlled with a blood pressure of 121/75. 5. Pericardial effusion. Cytology shows predominantly blood. No malignancy identified. Likely secondary to remote chest wall trauma.
[2017-03-21 04:00] VITALS: BP 136/74
[2017-03-21 05:23] LABS: BASO % 0.1 % (0.0-1.0); EOS % 0.3 % (0.0-3.0); LARGE UNSTAINED CELL # 0.1 K/mm3 (0.0-0.4); LARGE UNSTAINED CELL % 1.2 % (0.0-4.0); LYMPH # 0.7 K/mm3 (1.5-4.5); LYMPH % 4.7 % (24.0-44.0); MEAN CORPUSCULAR HEMOGLOBIN 29.6 pg (27.0-33.0); MEAN CORPUSCULAR HGB CONC 31.7 g/dl (32.0-36.5); MEAN CORPUSCULAR VOLUME 93.3 fl (80.0-96.0); MONO # 0.7 K/mm3 (0.0-0.8); MONO % 5.8 % (0.0-5.0); NEUTROPHILS # 10.3 K/mm3 (1.8-7.7); PLATELET COUNT, AUTOMATED 261 k/mm3 (150-450); RED CELL DISTRIBUTION WIDTH 14.9 % (11.5-14.5); WHITE BLOOD COUNT 11.6 K/mm3 (4.0-10.0)
[2017-03-21 05:41] LABS: INR 2.13
[2017-03-21 05:48] LABS: ALBUMIN 2.7 GM/DL (3.2-5.2); ALKALINE PHOSPHATASE 140 U/L (45-117); ALT/SGPT 212 U/L (12-78); ANION GAP 7 MEQ/L (8-16); AST/SGOT 193 U/L (15-37); BILIRUBIN,TOTAL 8.8 MG/DL (0.2-1.0); BLOOD UREA NITROGEN 30 MG/DL (7-18); CALCIUM LEVEL 8.6 MG/DL (8.8-10.2); CARBON DIOXIDE LEVEL 31 MEQ/L (21-32); CHLORIDE LEVEL 106 MEQ/L (98-107); CREATININE FOR GFR 0.92 MG/DL (0.70-1.30); GLOMERULAR FILTRATION RATE > 60.0 (>35); GLUCOSE, FASTING 78 MG/DL (83-110); POTASSIUM SERUM 4.1 MEQ/L (3.5-5.1); SODIUM LEVEL 144 MEQ/L (136-145); TOTAL PROTEIN 5.4 GM/DL (6.4-8.2)
[2017-03-21] MEDS: IPRATROPIUM 0.5MG/ALBUTEROL 2.5MG INH SOL UD 3ML (DUONEB)(J7620) NEB SCH ×4 (07:14→20:44)
[2017-03-21 08:00] VITALS: BP 125/86
[2017-03-21] MEDS: DIGOXIN 0.125 MG TAB PO SCH (09:28)
[2017-03-21] MEDS: METOPROLOL TART 50 MG TAB PO SCH ×2 (09:28→20:54)
[2017-03-21] MEDS: PANTOPRAZOLE 40MG INJ (PROTONIX) (C9113) IV SCH (09:28)
[2017-03-21 12:00] VITALS: BP 125/85
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
[2017-03-21 16:00] VITALS: BP 117/67
[2017-03-21 20:00] VITALS: BP 103/65; PULSE 96
[2017-03-21] MEDS: SODIUM CHLORIDE 0.9% INJ 10 ML SYR IV SCH (20:55)
--- NOTE | 2017-03-21 20:55 | IPN ---
CARDIOLOGY PROGRESS NOTE: 03/21/2017 SUBJECTIVE: Today, the patient is much brighter and he was able to communicate meaningfully with me. He was able to say that he was not having any chest pain or shortness of breath and that he recognized he was in hospital. OBJECTIVE: Elderly male of medium body build, lying comfortably. No longer moaning incoherently. Heart rate 100 - 110 beats per minute and irregular, blood pressure 118/52 supine, respiratory rate 18 per minute with O2 saturation 92% on supplemental oxygen by nasal prongs at 2 liters. Low grade temperature. His weight has decreased slightly from yesterday. Normal oral moisture. Trachea midline. Neck veins were actually down to 4 cm above the sternal angle. Bibasilar dullness and few bibasilar inspiratory rales. Improved air entry upper lung hwang. No audible pericardial rub. Heart sounds were variable with his arrhythmia as is his systolic murmur. Has only plus/minus sacral and distal pitting at this time. 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 LABORATORY DATA: Hemoglobin stable at 14.8, white blood cell count stable at 11.6. Normal platelet count. His PT/INR remains therapeutic at 2.1, despite parenteral vitamin K 1 and prior fresh frozen plasma. Electrolytes today were in balance with BUN improved to 30, creatinine 0.9, fasting glucose 78. Liver function studies were improved yet total bilirubin remains elevated at 8.8. Serum albumin 2.7. IMPRESSION/PLAN: 1. Atrial fibrillation (chronic): Current ventricular response to his atrial arrhythmia is adequately controlled on digoxin and metoprolol. No changes would be planned. In light of his advanced age and complicated pericardial effusion, I would be reluctant to resume his oral anticoagulation. Certainly not for several weeks. 2. Abnormal EKG/left anterior hemiblock and right bundle branch block/single chamber pacemaker in situ: Again, his pacemaker is primarily sensing spontaneous activity and is on standby. 3. Heart failure (systolic and diastolic/chronic): Off diuretic therapy. He currently would be considered at his functional dry weight. I am quite pleased by his improved renal function as well as his mental status. I would continue to withhold diuretic therapy. 4. Restrictive cardiomyopathy: Despite his complicated presentation, we do not believe it was cardiac tamponade that was responsible for his presentation. There were no echocardiographic findings of cardiac compression. Echocardiographic morphological appearance most in keeping with a restrictive cardiomyopathy. His prognosis remains guarded. 5. Coronary artery disease ([place] vessel)/post LAD stenting: Remains free of chest discomfort at this time. No change would be advised to his metoprolol. With his hepatic dysfunction, he is not a candidate for statin therapy. Prior to his discharge home we would consider resuming aspirin 81 mg daily. 6. Hypertension (essential): Blood pressure adequately controlled with metoprolol alone. We are very pleased by his improving renal function and absence from congestion at this time. I would certainly be reluctant to resume diuretic therapy until we had clear evidence of pulmonary vascular congestion. 7. Pericardial effusion (chronic)/post pericardial drainage: Has been free of pleuritic chest pain. No current pericardial rub. Echocardiogram the other day showed virtual resolution of his effusion. As mentioned above, would not be inclined to resume oral anticoagulation in this patient, but simply go with aspirin antiplatelet therapy alone for prophylaxis against stroke with his atrial fibrillation. At this point, I plan to follow him from [facility], but would be pleased to reassess at any time.
[2017-03-21] MEDS: ACETAMINOPHEN TAB 650MG DOSE (2X325MG) PO PRN (20:56)
[2017-03-21] MEDS: LATANOPROST 0.005% OPHTH SOLN 2.5 ML OU SCH (21:58)
[2017-03-21] MEDS: COSOPT OCUMETER PLUS 10ML (DORZOLAMIDE/TIMOLOL) OU SCH (21:58)
[2017-03-21 23:59] VITALS: BP 78/49
[2017-03-22] VITALS (8 sets, daily range): BP systolic 93–133; BP diastolic 55–83; PULSE 75–78
[2017-03-22] MEDS ORDERED: NS 500 ML IV ONE (01:15)
[2017-03-22] MEDS ORDERED: PERCOCET 5MG/325MG TAB PO PRN (02:00)
[2017-03-22] MEDS: SODIUM CHLORIDE 0.9% INJ 10 ML SYR IV SCH ×3 (05:43→21:43)
[2017-03-22 06:01] LABS: BASO % 0.2 % (0.0-1.0); EOS # 0.1 K/mm3 (0.0-0.50); EOS % 0.7 % (0.0-3.0); LARGE UNSTAINED CELL # 0.1 K/mm3 (0.0-0.4); LARGE UNSTAINED CELL % 1.2 % (0.0-4.0); LYMPH # 0.5 K/mm3 (1.5-4.5); LYMPH % 5.1 % (24.0-44.0); MEAN CORPUSCULAR HEMOGLOBIN 29.7 pg (27.0-33.0); MEAN CORPUSCULAR HGB CONC 31.6 g/dl (32.0-36.5); MONO # 0.5 K/mm3 (0.0-0.8); MONO % 6.7 % (0.0-5.0); NEUTROPHILS % 86.1 % (36.0-66.0); PLATELET COUNT, AUTOMATED 230 k/mm3 (150-450); RED CELL DISTRIBUTION WIDTH 14.9 % (11.5-14.5); WHITE BLOOD COUNT 8.1 K/mm3 (4.0-10.0)
[2017-03-22 06:12] LABS: ANION GAP 6 MEQ/L (8-16); BLOOD UREA NITROGEN 25 MG/DL (7-18); CALCIUM LEVEL 7.9 MG/DL (8.8-10.2); CARBON DIOXIDE LEVEL 32 MEQ/L (21-32); CHLORIDE LEVEL 110 MEQ/L (98-107); CREATININE FOR GFR 0.83 MG/DL (0.70-1.30); GLOMERULAR FILTRATION RATE > 60.0 (>35); GLUCOSE, FASTING 118 MG/DL (83-110); POTASSIUM SERUM 3.9 MEQ/L (3.5-5.1); SODIUM LEVEL 148 MEQ/L (136-145)
[2017-03-22] MEDS: IPRATROPIUM 0.5MG/ALBUTEROL 2.5MG INH SOL UD 3ML (DUONEB)(J7620) NEB SCH ×4 (07:43→20:14)
[2017-03-22] MEDS ORDERED: NALOXONE INJ 0.4 MG/1 ML VIAL (J2310) IV STA ×2 (09:23→09:48)
[2017-03-22] MEDS ORDERED: NALOXONE INJ 0.4 MG/1 ML VIAL (J2310) As Ordered ONE (09:24)
[2017-03-22 10:28] LABS: ABG BASE EXCESS 4.7 (-2.0-2.0); ABG HCO3 28.1 MEQ/L (22.0-26.0); ABG PARTIAL PRESSURE CO2 37.7 mmHg (35.0-45.0); ABG PARTIAL PRESSURE O2 105.2 mmHg (75.0-100.0); ABG STANDARD HCO3 28.7 MEQ/L (22.0-26.0); ABG TOTAL CO2 29.2 MEQ/L (23.0-31.0)
--- NOTE | 2017-03-22 10:41 | IPNPDOC ---
Text Note Date of Service The patient was seen on 03/22/17. NOTE Subjective: Patient seen and examined at bedside. History obtained from nursing staff. No vomiting, diarrhea or seizures overnight. Patient was slow to respond to the attending ict systems test engineer Dr. Javed but was able to convey that he was in the hospital and that the year was "seventeen" when asked the date. Per daughter, his normal baseline includes chopping firewood, ambulating at home, and feeding and dressing himself. In the hospital, patient continues to be agitated and complained of chest pain yesterday. He was given a Percocet this morning for this pain which depressed his consciousness and respirations; this required reversal with Narcan x2. He now remains on Tylenol for pain control. Also, patient failed to void last night so 300cc of urine was taken out of the bladder via straight catheter. His urine output this morning was also diminished and a Keller catheter was placed. The remaining HPI and ROS are limited due to patient being unarousable and failing to answer questions. Objective: Vitals: Please see below. Afebrile. VSS. Satting 97 on 2L NC. General: Somnolent. Sleeping in [place]. Occasional groans. Opens eyes to shoulder shaking and light sternal rub but quickly closes them again. HEENT: Head: normocephalic, atraumatic. Eyes: PERRL, sclera are nonicteric. Nose: No external lesions. Throat: no pharyngeal erythema or exudates, moist buccal mucosa. Diffusely poor dentition. No tongue lacerations. Respiratory: clear to auscultation bilaterally with no wheezes, rales, or rhonchi. Cardiovascular: irregularly irregular rhythm with no murmurs, rubs or gallops. Central line in place R subclavian. Abdomen: soft, nontender, nondistended, no hepatosplenomegaly appreciated. Bowel sounds present. : Keller catheter in place actively draining urine. Musculoskeletal: Unable to test due to altered mental status. Extremities: hands are cool to touch. lower extremities cool to palpation and mottled discoloration with some chronic venous stasis type changes. Bandages to bilateral anterior tibial surfaces. Neurological: Unable to test due to AMS. Moves all extremities sporadically. Integumentary: Mottled appearing lower extremities. Toenails with onychomycosis. Vascular: pulses palpable and symmetrical in upper and lower extremities bilaterally. Laboratory data: Please see below. UA: 2+ protein, trace ketones, 3+ blood, 1+ bilirubin, trace leukocyte esterase , WBC 34, RBC 167 Bladder Scan: 321cc this morning pre-catheterization Microbiology: Please see previous chart notes. Imaging: No new imaging. 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 He is presenting to [facility] for acute respiratory failure 2/ 2 cardiogenic shock and large pericardial effusion with what was presumed to be cardiac tamponade. Pericardiocentesis was performed that drained 1400 mL of bloody dark red fluid. So far, cytology and cell block pathology has yielded no malignancy. Patient was intubated by Dr. Irving Tucker during pericardiocentesis for decreased respirations, sedated with Versed, and placed on mechanical ventilation. An NG tube was also placed for medication administration and feedings while intubated however this was discontinued. A triple lumen catheter R subclavian central line was also placed for potential pressor support and cardiac monitoring by Dr. Jayro Hudson. Additionally, a CT scan done showed bilateral pleural effusions. Patient's admission INR was 11.19 and patient is now status-post 2 units FFP and vitamin K. Patient now status-post extubation and mechanical ventilation. He has been transferred from ICU to PCU. Patient may have had some medication noncompliance issues or underlying dementia. He is able to tolerate pills and handle his own secretions. Is on clear liquids diet for now. Swallow eval/speech pathology cleared patient for pureed solids, regular thin liquids, no straws or solids. Aspiration precautions and sit up- right. If any sign of aspiration, move back to down to nectar thickened liquids. Altered Mental Status: Continue to monitor with serial exams. Nurse reports patient's mentation has improved and patient not having difficulty swallowing pills. Will monitor patient once the narcotics wear off. Pericardial Effusion: no malignancy identified. Cardiology consulted yesterday and the question was raised whether this was true cardiac tamponade from effusion versus symptomatic restrictive cardiomyopathy. In any case, cardiogenic shock is resolved. Bilateral Pleural Effusions: continue to monitor clinically. Intervention as necessary. Acute Urinary Retention: Patient was not able to void last night and had 321 mLs of postvoid urine on bladder scan. Placed on Flomax 0.4mg PO daily. Keller catheter in place, can be discontinued in 2-3 days. Will check urine culture. Leukocytosis: resolved. Chronic Atrial Fibrillation: Good rate control with digoxin 0.125 mg daily and metoprolol 50 mg BID. Will continue as per cardiology. Abnormal EKG/L Anterior Hemiblock with RBBB/Single Chamber Pacemaker In Situ: being managed by Cardiology. Appreciate input. Systolic and Diastolic Heart Failure: continue to monitor urine output. Management as per Cardiology. Follow up echocardiogram on 03/19 showed improved L ventricular systolic performance with controlled ventricular response to his atrial fibrillation. There is a small amount of residual pericardial effusion and an obvious L pleural effusion. Pulmonary Hypertension with R Heart Failure: Management per Cardiology. Mild to Moderate Mitral Insufficiency: Management per Cardiology. Restrictive Cardiomyopathy: Management per Cardiology. CAD status-post LAD stenting: Continue metoprolol for ventricular response control as per Cardiology. Hypercholesterolemia: If tolerates PO, we can resume his statin. Essential HTN: Continue BP control with metoprolol alone. Renal function improved. Respiratory Failure: Extubated and patient satting 90s on 2 liters nasal cannula. Has improved. Lactic Acidosis 2/2 decreased cardiac output: resolved. Elevated INR: status-post FFP and vitamin K. Has resolved and patient is now in therapeutic range with INR between 2-3. Dr. Juárez of cardiology wishes to hold off on anticoagulation for several weeks due to his complicated course with the pericardial effusion. Elevated LFTs possibly 2/2 to passive congestion of liver: LFTs trending down and improving. Patient also has some decreased mentation and this may be a causative factor--metabolic encephalopathy. Dementia: continue to monitor mental status. Diet: clear liquids. Now, will change according to speech therapist recommendations to pureed solids and regular thin liquids. DVT ppx: TEDS and SCDs. No pharmacologic ppx due to complicated management with pericardial effusion and initially very high and elevated INR upon admission. Immunizations as per protocol. My preceptor for this patient encounter was Dr. Rom Javed, and was physically present in the building during the encounter and was fully available. As needed, all aspects of the patient interview, examination, medical decision making process, and medical care plan development were reviewed and approved by the preceptor. Preceptor is aware and concurs with the plan as stated in the body of this note and will attest to such by his/her cosignature. Attending Note: I have independently examined this patient and all aspects of the exam and treatment decisions have been discussed with the resident. A member of the hospitalist staff will continue to follow this patient through discharge. VS,Fishbone, I+O VS, Fishbone, I+O Laboratory Tests 03/22/17 05:42 Red Blood Count 4.76, Mean Corpuscular Volume 94.0, Mean Corpuscular Hemoglobin 29.7, Mean Corpuscular Hemoglobin Concent 31.6 L, Red Cell Distribution Width 14.9 H, Neutrophils (%) (Auto) 86.1 H, Lymphocytes (%) (Auto) 5.1 L, Monocytes ( %) (Auto) 6.7 H, Eosinophils (%) (Auto) 0.7, Basophils (%) (Auto) 0.2, Neutrophils # (Auto) 7.0, Lymphocytes # (Auto) 0.5 L, Monocytes # (Auto) 0.5, Eosinophils # (Auto) 0.1, Basophils # (Auto) 0.0, Calcium Level 7.9 L Vital Signs Date Time Temp Pulse Resp B/P (MAP) Pulse Ox O2 Delivery O2 Flow Rate FiO2 03/22/17 06:40 18 03/22/17 04:00 Nasal Cannula 2.0 03/22/17 04:00 98.4 81 124/78 (93) 97 03/19/17 11:00 28 I&O- Last 24 Hours up to 6 AM 03/22/17 06:00 Intake Total 1280 ml Output Total 575 ml Balance 705 ml SABINA GARCIA OGME-1 Mar 22, 2017 10:16 ROM JAVED DO Apr 02, 2017 14:28
[2017-03-22] MEDS: PANTOPRAZOLE 40MG INJ (PROTONIX) (C9113) IV SCH (10:42)
[2017-03-22] MEDS: SODIUM CHLORIDE 0.9% INJ 10 ML SYR IV PRN (10:43)
--- NOTE | 2017-03-22 11:18 | REP ---
Portable chest x-ray: Single view. History: Shortness of breath. Comparison chest x-ray March 20, 2017. Findings: EKG monitoring electrodes overlie the chest. A right subclavian catheter remains in place. A pacemaker lead is seen in the right heart via the left side as before. Oxygen delivery tubing is noted. There are bilateral pleural effusions again noted essentially unchanged. Some plate-like atelectasis is seen in both lung bases. Pulmonary vasculature remains cephalized. Signed by Bin Ang MD 03/22/2017 01:19 P
[2017-03-22] MEDS: DIGOXIN 0.125 MG TAB PO SCH (12:10)
[2017-03-22] MEDS: METOPROLOL TART 50 MG TAB PO SCH ×2 (12:10→21:00)
[2017-03-22] MEDS: TAMSULOSIN 0.4 MG CAP PO SCH (12:11)
[2017-03-22] MEDS: COSOPT OCUMETER PLUS 10ML (DORZOLAMIDE/TIMOLOL) OU SCH ×2 (12:18→21:43)
[2017-03-22] MEDS ORDERED: FUROSEMIDE 40 MG/4 ML VIAL (J1940) IV ONE (14:00)
[2017-03-22] MEDS: LATANOPROST 0.005% OPHTH SOLN 2.5 ML OU SCH (21:42)
[2017-03-22] MEDS: ACETAMINOPHEN TAB 650MG DOSE (2X325MG) PO PRN (21:53)
[2017-03-23] VITALS (10 sets, daily range): BP systolic 80–103; BP diastolic 44–68
[2017-03-23] MEDS: SODIUM CHLORIDE 0.9% INJ 10 ML SYR IV SCH ×3 (05:15→20:54)
[2017-03-23 05:33] LABS: BASO % 0.3 % (0.0-1.0); EOS # 0.2 K/mm3 (0.0-0.50); EOS % 1.7 % (0.0-3.0); LARGE UNSTAINED CELL # 0.1 K/mm3 (0.0-0.4); LARGE UNSTAINED CELL % 0.8 % (0.0-4.0); LYMPH # 0.6 K/mm3 (1.5-4.5); MEAN CORPUSCULAR HEMOGLOBIN 29.1 pg (27.0-33.0); MEAN CORPUSCULAR HGB CONC 30.5 g/dl (32.0-36.5); MEAN CORPUSCULAR VOLUME 95.2 fl (80.0-96.0); MONO # 0.5 K/mm3 (0.0-0.8); NEUTROPHILS # 7.4 K/mm3 (1.8-7.7); NEUTROPHILS % 85.2 % (36.0-66.0); PLATELET COUNT, AUTOMATED 229 k/mm3 (150-450); RED CELL DISTRIBUTION WIDTH 14.9 % (11.5-14.5); WHITE BLOOD COUNT 8.7 K/mm3 (4.0-10.0)
[2017-03-23 05:55] LABS: ANION GAP 6 MEQ/L (8-16); BLOOD UREA NITROGEN 25 MG/DL (7-18); CALCIUM LEVEL 7.9 MG/DL (8.8-10.2); CARBON DIOXIDE LEVEL 32 MEQ/L (21-32); CHLORIDE LEVEL 108 MEQ/L (98-107); CREATININE FOR GFR 0.91 MG/DL (0.70-1.30); GLOMERULAR FILTRATION RATE > 60.0 (>35); GLUCOSE, FASTING 103 MG/DL (83-110); POTASSIUM SERUM 3.8 MEQ/L (3.5-5.1); SODIUM LEVEL 146 MEQ/L (136-145)
[2017-03-23] MEDS: IPRATROPIUM 0.5MG/ALBUTEROL 2.5MG INH SOL UD 3ML (DUONEB)(J7620) NEB SCH ×4 (07:08→20:19)
[2017-03-23] MEDS: TAMSULOSIN 0.4 MG CAP PO SCH (09:00)
[2017-03-23] MEDS: DIGOXIN 0.125 MG TAB PO SCH (09:54)
[2017-03-23] MEDS: PANTOPRAZOLE 40MG INJ (PROTONIX) (C9113) IV SCH (09:54)
[2017-03-23] MEDS: COSOPT OCUMETER PLUS 10ML (DORZOLAMIDE/TIMOLOL) OU SCH ×2 (09:54→20:47)
[2017-03-23] MEDS ORDERED: SODIUM CHLORIDE 0.9% 1000 ML IV ONE (10:45)
[2017-03-23] MEDS: METOPROLOL TART 50 MG TAB PO SCH (11:13)
--- NOTE | 2017-03-23 13:34 | IPNPDOC ---
Text Note Date of Service The patient was seen on 03/23/17. NOTE Subjective: Patient seen and examined at bedside. This AM, BPs were running soft. Nurse reports that later this morning after I had seen patient, patient's BP was 80/ 59 when he was sitting up in chair. Then, after he lied down, the patient's BP was 82/44. Sitter at bedside earlier this AM stated that patient was very nice but was stating something about him being involved with "drugs and drug dealers , assisted, police station, and also something regarding a sex change operation." Patient was telling Dr. Maurer that he was in assisted in [place] in a police station prior to being in the hospital. However, after asking patient's daughter later this morning if this was true, daughter denied that patient has ever been to [place] or in assisted earlier this year. Daughter stated that patient has never been in assisted. According to this, it seems patient still is a bit confused and has some issues with his memory. Otherwise, he is oriented to person, place, and . He knows the year is 2016. States month is January. [facility] president is Victor Hugo Doshi and that he voted for him. He was enjoying breakfast: oatmeal at bedside this AM. No vomiting, diarrhea or seizures overnight. Patient admitted to some chest pain today but he denied it second time I asked. In addition, he reported some SOB that he always has especially with exertion. However, patient denied SOB second time I asked. I have asked the nurse to keep an eye on the patient in order to make sure patient does not have chest pain or SOB. Patient denies fevers, chills, headache, dizziness, chest pain and SOB currently, abdominal pain, nausea, vomiting, diarrhea, or constipation, any urinary symptoms, or any acute issues overnight. Admits to a sore throat. Objective: Vitals: T 98.2, BP 100/68, RR 20, P 103, Satting 98% on 2L NC. General: Awake. Alert and oriented to person, place, but not entirely time. Knows the year, the day, but not the month. Knows the president. Also seems to be confused as he thinks he was in [place] 3 days ago, went to assisted, was involved with drug dealers, cannot recall where his wallet is. Daughter denies this to be true. HEENT: Head: normocephalic, atraumatic. Eyes: sclera are nonicteric. Nose: No external lesions. Throat: no pharyngeal erythema or exudates, moist buccal mucosa. Diffusely poor dentition. No tongue lacerations. Respiratory: clear to auscultation bilaterally with no wheezes, rales, or rhonchi. Cardiovascular: irregularly irregular rhythm with no murmurs, rubs or gallops. Tachycardic rate. Central line in place R subclavian. Pacemaker visible externally under skin of L anterior chest. Abdomen: soft, nontender, nondistended, no hepatosplenomegaly appreciated. Bowel sounds present. : Keller catheter in place actively draining urine. Musculoskeletal: did not test strength today. Extremities: lower extremities warmer to palpation yesterday and very tender when pressed. Had socks on lower extremities extending up shins. Bandages to bilateral anterior tibial surfaces in place. Neurological: Moves all extremities sporadically. Integumentary: Some bruising and scrapes observed on anterior chest wall L and middle > R. Vascular: pulses palpable and symmetrical in upper extremities bilaterally. Unable to palpate dorsalis pedis or posterior tibialis pulses bilaterally. Laboratory data: Please see below. Microbiology: Please see previous chart notes. Imaging: No new imaging. 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 He is presenting to [facility] for acute respiratory failure 2/2 cardiogenic shock and large pericardial effusion with what was presumed to be cardiac tamponade. Pericardiocentesis was performed that drained 1400 mL of bloody dark red fluid. So far, cytology and cell block pathology has yielded no malignancy. Patient was intubated by Dr. Irving Tucker during pericardiocentesis for decreased respirations, sedated with Versed, and placed on mechanical ventilation. An NG tube was also placed for medication administration and feedings while intubated however this was discontinued. A triple lumen catheter R subclavian central line was also placed for potential pressor support and cardiac monitoring by Dr. Jayro Hudson. Additionally, a CT scan done showed bilateral pleural effusions. Patient's admission INR was 11.19 and patient is now status-post 2 units FFP and vitamin K. Patient now status-post extubation and mechanical ventilation. He has been transferred from ICU to PCU. Patient may have had some medication noncompliance issues or underlying dementia. He is able to tolerate pills and handle his own secretions. Is on clear liquids diet for now. Swallow eval/speech pathology cleared patient for pureed solids, regular thin liquids, no straws or solids. Aspiration precautions and sit up- right. If any sign of aspiration, move back to down to nectar thickened liquids. Hypotension: Have given 500 cc bolus of NS. Patient's BP went from 94/52 from 80 /59. Will continue to monitor. May administer additional boluses if needed. Hypernatremia: Na 146 from 148 yesterday. Probably related to poor PO intake. Will encourage oral hydration and fluids. Continue to monitor BMPs. Chronic Atrial Fibrillation: Good rate control. On digoxin 0.125 mg daily. Will continue as per cardiology. Will continue to monitor rate. Will call Cardiology again if necessary if rate uncontrolled or becomes hemodynamically unstable. Holding diuretics and beta blockers as well as any BP medications for now. Altered Mental Status: Improved from 1 and 2 days ago. However, patient seems to be confused this AM thinking that he went to assisted in [place] and being involved with drug dealers. Will continue sitter for now and reevaluate the need for the sitter tomorrow. Patient is oriented to person and to place, but not fully to time. Pericardial Effusion: no malignancy identified. Question is whether this was true cardiac tamponade from effusion versus symptomatic restrictive cardiomyopathy. In any case, cardiogenic shock is resolved. Bilateral Pleural Effusions: continue to monitor clinically. Intervention as necessary. Acute Urinary Retention: Patient was not able to void last night and had 321 mLs of postvoid urine on bladder scan. Placed on Flomax 0.4mg PO daily. Keller catheter in place, can be discontinued in 2-3 days. Will check urine culture. Leukocytosis: resolved. Abnormal EKG/L Anterior Hemiblock with RBBB/Single Chamber Pacemaker In Situ: Continue monitoring cardiac status. Systolic and Diastolic Heart Failure: continue to monitor urine output. Patient hypotensive and mildly tachycardic. Rate is controlled for now. We are holding any diuretics and BP medications for now. Follow up echocardiogram on 03/19 showed improved L ventricular systolic performance with controlled ventricular response to his atrial fibrillation. There is a small amount of residual pericardial effusion and an obvious L pleural effusion. Will consult cardiology again if necessary. Pulmonary Hypertension with R Heart Failure: Management per Cardiology. Mild to Moderate Mitral Insufficiency: Management per Cardiology. Restrictive Cardiomyopathy: Management per Cardiology. CAD status-post LAD stenting: Continue metoprolol for ventricular response control as per Cardiology. Hypercholesterolemia: If tolerates PO, we can resume his statin. Essential HTN: Continue BP control with metoprolol alone. Renal function improved. Respiratory Failure: Extubated and patient satting 90s on 2 liters nasal cannula. Has improved. Lactic Acidosis 2/2 decreased cardiac output: resolved. Elevated INR: status-post FFP and vitamin K. Has resolved and patient is now in therapeutic range with INR between 2-3. Dr. Juárez of cardiology wishes to hold off on anticoagulation for several weeks due to his complicated course with the pericardial effusion. Elevated LFTs possibly 2/2 to passive congestion of liver: LFTs had begun to trend down previously. Patient also has some decreased mentation and this may be a causative factor--metabolic encephalopathy. Dementia: Definitely has forgetfulness as well as some confusion as noted in HPI. Continue to monitor mental status. Continue sitter for now. I suspect patient is at risk for sundowning. Diet: As per Speech & Swallow Eval, have started Pureed diet and regular thin liquids. Ensure clear is also ordered. Weakness: Have ordered PT/OT. DVT ppx: TEDS and SCDs. No pharmacologic ppx due to complicated management with pericardial effusion and initially very high and elevated INR upon admission. Immunizations as per protocol. My preceptor for this patient encounter was Dr. Aggie Maurer, and was physically present in the building during the encounter and was fully available. As needed , all aspects of the patient interview, examination, medical decision making process, and medical care plan development were reviewed and approved by the preceptor. Preceptor is aware and concurs with the plan as stated in the body of this note and will attest to such by his/her cosignature. VS,Fishbone, I+O VS, Fishbone, I+O Laboratory Tests 03/23/17 05:10 Red Blood Count 5.00, Mean Corpuscular Volume 95.2, Mean Corpuscular Hemoglobin 29.1, Mean Corpuscular Hemoglobin Concent 30.5 L, Red Cell Distribution Width 14.9 H, Neutrophils (%) (Auto) 85.2 H, Lymphocytes (%) (Auto) 6.0 L, Monocytes ( %) (Auto) 6.0 H, Eosinophils (%) (Auto) 1.7, Basophils (%) (Auto) 0.3, Neutrophils # (Auto) 7.4, Lymphocytes # (Auto) 0.6 L, Monocytes # (Auto) 0.5, Eosinophils # (Auto) 0.2, Basophils # (Auto) 0.0, Calcium Level 7.9 L Vital Signs Date Time Temp Pulse Resp B/P (MAP) Pulse Ox O2 Delivery O2 Flow Rate FiO2 03/23/17 11:30 98.2 97 20 94/52 (66) 90 Nasal Cannula 2.0 03/19/17 11:00 28 I&O- Last 24 Hours up to 6 AM 03/23/17 05:59 Intake Total 1840 ml Output Total 1875 ml Balance -35 ml SABINA GARCIA OGME-1 Mar 23, 2017 13:34
--- NOTE | 2017-03-23 13:54 | ECGEPIP ---
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
[2017-03-23] MEDS ORDERED: CEPACOL LOZENGE PO PRN (19:15)
[2017-03-23] MEDS: LATANOPROST 0.005% OPHTH SOLN 2.5 ML OU SCH (20:47)
[2017-03-23] MEDS: METOPROLOL TART 25 MG TABLET PO SCH (21:00)
[2017-03-24 04:45] VITALS: BP 98/64
[2017-03-24] MEDS: SODIUM CHLORIDE 0.9% INJ 10 ML SYR IV SCH ×3 (05:42→21:29)
[2017-03-24 06:03] LABS: BASO % 0.5 % (0.0-1.0); EOS # 0.2 K/mm3 (0.0-0.50); EOS % 2.4 % (0.0-3.0); LARGE UNSTAINED CELL # 0.1 K/mm3 (0.0-0.4); LARGE UNSTAINED CELL % 1.3 % (0.0-4.0); LYMPH # 0.7 K/mm3 (1.5-4.5); LYMPH % 8.8 % (24.0-44.0); MEAN CORPUSCULAR HEMOGLOBIN 29.7 pg (27.0-33.0); MEAN CORPUSCULAR VOLUME 92.9 fl (80.0-96.0); MONO # 0.5 K/mm3 (0.0-0.8); MONO % 7.4 % (0.0-5.0); NEUTROPHILS # 5.2 K/mm3 (1.8-7.7); NEUTROPHILS % 79.6 % (36.0-66.0); PLATELET COUNT, AUTOMATED 199 k/mm3 (150-450); RED CELL DISTRIBUTION WIDTH 15.3 % (11.5-14.5); WHITE BLOOD COUNT 6.6 K/mm3 (4.0-10.0)
[2017-03-24 06:35] LABS: ALBUMIN 2.1 GM/DL (3.2-5.2); ALBUMIN/GLOBULIN RATIO 1.05 (1.00-1.93); ALKALINE PHOSPHATASE 152 U/L (45-117); ALT/SGPT 135 U/L (12-78); ANION GAP 6 MEQ/L (8-16); AST/SGOT 126 U/L (15-37); BILIRUBIN,TOTAL 7.2 MG/DL (0.2-1.0); BLOOD UREA NITROGEN 21 MG/DL (7-18); CALCIUM LEVEL 7.8 MG/DL (8.8-10.2); CARBON DIOXIDE LEVEL 31 MEQ/L (21-32); CHLORIDE LEVEL 105 MEQ/L (98-107); CREATININE FOR GFR 0.68 MG/DL (0.70-1.30); DIGOXIN LEVEL 1.2 NG/ML (0.5-2.0); GLOMERULAR FILTRATION RATE > 60.0 (>35); GLUCOSE, FASTING 101 MG/DL (83-110); MAGNESIUM LEVEL 1.8 MG/DL (1.8-2.4); POTASSIUM SERUM 3.9 MEQ/L (3.5-5.1); SODIUM LEVEL 142 MEQ/L (136-145); TOTAL PROTEIN 4.1 GM/DL (6.4-8.2)
[2017-03-24] MEDS: IPRATROPIUM 0.5MG/ALBUTEROL 2.5MG INH SOL UD 3ML (DUONEB)(J7620) NEB SCH ×4 (07:18→22:15)
[2017-03-24 08:00] VITALS: BP 108/78
[2017-03-24] MEDS: METOPROLOL TART 25 MG TABLET PO SCH ×3 (08:56→21:38)
[2017-03-24] MEDS: TAMSULOSIN 0.4 MG CAP PO SCH (09:05)
[2017-03-24] MEDS: DIGOXIN 0.125 MG TAB PO SCH (09:06)
[2017-03-24] MEDS: COSOPT OCUMETER PLUS 10ML (DORZOLAMIDE/TIMOLOL) OU SCH ×2 (09:06→21:29)
[2017-03-24] MEDS: PANTOPRAZOLE 40MG INJ (PROTONIX) (C9113) IV SCH (09:06)
[2017-03-24 12:00] VITALS: BP 111/66
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
[2017-03-24 16:00] VITALS: BP 104/69
[2017-03-24 19:40] VITALS: BP 105/67
[2017-03-24] MEDS: LATANOPROST 0.005% OPHTH SOLN 2.5 ML OU SCH (21:29)
[2017-03-24 23:55] VITALS: BP 97/64
[2017-03-25 04:22] VITALS: BP 101/70
[2017-03-25] MEDS: SODIUM CHLORIDE 0.9% INJ 10 ML SYR IV SCH ×3 (04:34→21:45)
[2017-03-25 04:48] LABS: BASO % 0.7 % (0.0-1.0); EOS # 0.2 K/mm3 (0.0-0.50); EOS % 2.4 % (0.0-3.0); LARGE UNSTAINED CELL # 0.1 K/mm3 (0.0-0.4); LARGE UNSTAINED CELL % 1.9 % (0.0-4.0); LYMPH # 0.7 K/mm3 (1.5-4.5); MEAN CORPUSCULAR HEMOGLOBIN 29.6 pg (27.0-33.0); MEAN CORPUSCULAR HGB CONC 31.4 g/dl (32.0-36.5); MEAN CORPUSCULAR VOLUME 94.2 fl (80.0-96.0); MONO # 0.6 K/mm3 (0.0-0.8); MONO % 9.3 % (0.0-5.0); NEUTROPHILS # 4.7 K/mm3 (1.8-7.7); NEUTROPHILS % 74.7 % (36.0-66.0); PLATELET COUNT, AUTOMATED 198 k/mm3 (150-450); RED CELL DISTRIBUTION WIDTH 15.2 % (11.5-14.5); WHITE BLOOD COUNT 6.2 K/mm3 (4.0-10.0)
[2017-03-25 05:17] LABS: ALBUMIN/GLOBULIN RATIO 0.87 (1.00-1.93); ALKALINE PHOSPHATASE 176 U/L (45-117); ALT/SGPT 122 U/L (12-78); ANION GAP 4 MEQ/L (8-16); AST/SGOT 104 U/L (15-37); BILIRUBIN,TOTAL 6.4 MG/DL (0.2-1.0); BLOOD UREA NITROGEN 21 MG/DL (7-18); CALCIUM LEVEL 7.9 MG/DL (8.8-10.2); CARBON DIOXIDE LEVEL 32 MEQ/L (21-32); CHLORIDE LEVEL 103 MEQ/L (98-107); CREATININE FOR GFR 0.69 MG/DL (0.70-1.30); GLOMERULAR FILTRATION RATE > 60.0 (>35); GLUCOSE, FASTING 106 MG/DL (83-110); MAGNESIUM LEVEL 1.8 MG/DL (1.8-2.4); POTASSIUM SERUM 4.3 MEQ/L (3.5-5.1); SODIUM LEVEL 139 MEQ/L (136-145); TOTAL PROTEIN 4.3 GM/DL (6.4-8.2)
[2017-03-25] MEDS: IPRATROPIUM 0.5MG/ALBUTEROL 2.5MG INH SOL UD 3ML (DUONEB)(J7620) NEB SCH ×4 (07:57→20:00)
[2017-03-25 08:00] VITALS: BP 96/71
[2017-03-25] MEDS: METOPROLOL TART 25 MG TABLET PO SCH ×2 (09:00→21:45)
[2017-03-25] MEDS: TAMSULOSIN 0.4 MG CAP PO SCH (09:24)
[2017-03-25] MEDS: PANTOPRAZOLE 40MG INJ (PROTONIX) (C9113) IV SCH (09:31)
[2017-03-25] MEDS: DIGOXIN 0.125 MG TAB PO SCH (09:31)
[2017-03-25] MEDS: COSOPT OCUMETER PLUS 10ML (DORZOLAMIDE/TIMOLOL) OU SCH ×2 (09:31→21:45)
[2017-03-25] MEDS: SODIUM CHLORIDE 0.9% INJ 10 ML SYR IV PRN (09:32)
[2017-03-25 12:00] VITALS: BP 126/82
[2017-03-25] MEDS: NYSTATIN 500,000 U/5 ML SUSP UDC SS SCH ×2 (14:16→18:00)
[2017-03-25 16:00] VITALS: BP 116/71
[2017-03-25 19:25] VITALS: BP 109/70
[2017-03-25] MEDS: LATANOPROST 0.005% OPHTH SOLN 2.5 ML OU SCH (21:45)
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
[2017-03-26] MEDS: NYSTATIN 500,000 U/5 ML SUSP UDC SS SCH ×5 (00:05→23:34)
[2017-03-26 00:37] VITALS: BP 96/61
[2017-03-26 03:59] VITALS: BP 104/68
[2017-03-26] MEDS: SODIUM CHLORIDE 0.9% INJ 10 ML SYR IV SCH ×3 (06:00→21:11)
[2017-03-26 06:24] LABS: BASO % 0.5 % (0.0-1.0); EOS # 0.2 K/mm3 (0.0-0.50); EOS % 2.7 % (0.0-3.0); LARGE UNSTAINED CELL # 0.1 K/mm3 (0.0-0.4); LARGE UNSTAINED CELL % 1.7 % (0.0-4.0); LYMPH # 0.9 K/mm3 (1.5-4.5); LYMPH % 13.1 % (24.0-44.0); MEAN CORPUSCULAR HEMOGLOBIN 29.9 pg (27.0-33.0); MEAN CORPUSCULAR HGB CONC 32.1 g/dl (32.0-36.5); MEAN CORPUSCULAR VOLUME 93.2 fl (80.0-96.0); MONO # 0.6 K/mm3 (0.0-0.8); MONO % 9.8 % (0.0-5.0); NEUTROPHILS # 4.3 K/mm3 (1.8-7.7); NEUTROPHILS % 72.2 % (36.0-66.0); PLATELET COUNT, AUTOMATED 177 k/mm3 (150-450); RED CELL DISTRIBUTION WIDTH 15.3 % (11.5-14.5)
[2017-03-26 06:35] LABS: ALBUMIN 2.1 GM/DL (3.2-5.2); ALBUMIN/GLOBULIN RATIO 0.91 (1.00-1.93); ALKALINE PHOSPHATASE 197 U/L (45-117); ALT/SGPT 114 U/L (12-78); ANION GAP 3 MEQ/L (8-16); AST/SGOT 98 U/L (15-37); BILIRUBIN,TOTAL 6.6 MG/DL (0.2-1.0); BLOOD UREA NITROGEN 19 MG/DL (7-18); CALCIUM LEVEL 7.9 MG/DL (8.8-10.2); CARBON DIOXIDE LEVEL 32 MEQ/L (21-32); CHLORIDE LEVEL 100 MEQ/L (98-107); CREATININE FOR GFR 0.54 MG/DL (0.70-1.30); GLOMERULAR FILTRATION RATE > 60.0 (>35); GLUCOSE, FASTING 105 MG/DL (83-110); MAGNESIUM LEVEL 1.9 MG/DL (1.8-2.4); POTASSIUM SERUM 4.4 MEQ/L (3.5-5.1); SODIUM LEVEL 135 MEQ/L (136-145); TOTAL PROTEIN 4.4 GM/DL (6.4-8.2)
[2017-03-26 07:40] VITALS: BP 103/65
[2017-03-26] MEDS: IPRATROPIUM 0.5MG/ALBUTEROL 2.5MG INH SOL UD 3ML (DUONEB)(J7620) NEB SCH ×4 (08:03→20:00)
[2017-03-26] MEDS: TAMSULOSIN 0.4 MG CAP PO SCH (08:25)
[2017-03-26] MEDS: DIGOXIN 0.125 MG TAB PO SCH (08:26)
[2017-03-26] MEDS: COSOPT OCUMETER PLUS 10ML (DORZOLAMIDE/TIMOLOL) OU SCH ×2 (08:26→21:13)
[2017-03-26] MEDS: METOPROLOL TART 25 MG TABLET PO SCH ×2 (08:26→21:08)
[2017-03-26] MEDS: FUROSEMIDE 40 MG TAB PO SCH (10:42)
[2017-03-26 11:15] VITALS: BP 119/73
[2017-03-26] MEDS: guaiFENesin ER 600 MG TAB PO SCH ×2 (12:40→21:07)
[2017-03-26 14:00] VITALS: BP 118/64
[2017-03-26] MEDS: DEXTROMETHORPHAN 60MG/10ML SUSP 90ML BTL(DELSYM) PO SCH ×2 (14:46→21:08)
[2017-03-26] MEDS: LATANOPROST 0.005% OPHTH SOLN 2.5 ML OU SCH (21:13)
--- NOTE | 2017-03-26 21:50 | IPNPDOC ---
Text Note Date of Service The patient was seen on 03/26/17. VS,Fishbone, I+O VS, Fishbone, I+O Laboratory Tests 03/26/17 05:58 Red Blood Count 4.27 L, Mean Corpuscular Volume 93.2, Mean Corpuscular Hemoglobin 29.9, Mean Corpuscular Hemoglobin Concent 32.1, Red Cell Distribution Width 15.3 H, Neutrophils (%) (Auto) 72.2 H, Lymphocytes (%) (Auto ) 13.1 L, Monocytes (%) (Auto) 9.8 H, Eosinophils (%) (Auto) 2.7, Basophils (%) (Auto) 0.5, Neutrophils # (Auto) 4.3, Lymphocytes # (Auto) 0.9 L, Monocytes # ( Auto) 0.6, Eosinophils # (Auto) 0.2, Basophils # (Auto) 0.0, Calcium Level 7.9 L , Aspartate Amino Transf (AST/SGOT) 98 H, Alanine Aminotransferase (ALT/SGPT) 114 H, Alkaline Phosphatase 197 H, Total Bilirubin 6.6 H, Total Protein 4.4 L, Albumin 2.1 L Vital Signs Date Time Temp Pulse Resp B/P (MAP) Pulse Ox O2 Delivery O2 Flow Rate FiO2 03/26/17 21:08 85 104/60 03/26/17 14:00 97.9 18 95 Room Air 03/25/17 16:00 2.0 I&O- Last 24 Hours up to 6 AM 03/26/17 06:00 Intake Total 1560 ml Output Total 975 ml Balance 585 ml SABINA GARCIA OGME-1 Mar 26, 2017 21:50
[2017-03-26 22:00] VITALS: BP 104/60
[2017-03-27] MEDS: SODIUM CHLORIDE 0.9% INJ 10 ML SYR IV SCH (05:52)
[2017-03-27] MEDS: NYSTATIN 500,000 U/5 ML SUSP UDC SS SCH ×4 (05:52→23:37)
[2017-03-27 05:58] LABS: BASO % 0.5 % (0.0-1.0); EOS # 0.1 K/mm3 (0.0-0.50); EOS % 2.2 % (0.0-3.0); LARGE UNSTAINED CELL # 0.1 K/mm3 (0.0-0.4); LYMPH # 0.8 K/mm3 (1.5-4.5); LYMPH % 12.3 % (24.0-44.0); MEAN CORPUSCULAR HEMOGLOBIN 29.6 pg (27.0-33.0); MEAN CORPUSCULAR HGB CONC 31.6 g/dl (32.0-36.5); MEAN CORPUSCULAR VOLUME 93.5 fl (80.0-96.0); MONO # 0.5 K/mm3 (0.0-0.8); MONO % 7.9 % (0.0-5.0); NEUTROPHILS # 4.4 K/mm3 (1.8-7.7); NEUTROPHILS % 75.1 % (36.0-66.0); PLATELET COUNT, AUTOMATED 189 k/mm3 (150-450); RED CELL DISTRIBUTION WIDTH 15.5 % (11.5-14.5); WHITE BLOOD COUNT 5.9 K/mm3 (4.0-10.0)
[2017-03-27 06:00] VITALS: BP 124/82
[2017-03-27 06:29] LABS: ALBUMIN/GLOBULIN RATIO 0.71 (1.00-1.93); ALKALINE PHOSPHATASE 198 U/L (45-117); ALT/SGPT 105 U/L (12-78); ANION GAP 4 MEQ/L (8-16); AST/SGOT 94 U/L (15-37); BILIRUBIN,TOTAL 6.7 MG/DL (0.2-1.0); BLOOD UREA NITROGEN 20 MG/DL (7-18); CALCIUM LEVEL 8.4 MG/DL (8.8-10.2); CARBON DIOXIDE LEVEL 30 MEQ/L (21-32); CHLORIDE LEVEL 99 MEQ/L (98-107); CREATININE FOR GFR 0.54 MG/DL (0.70-1.30); GLOMERULAR FILTRATION RATE > 60.0 (>35); GLUCOSE, FASTING 98 MG/DL (83-110); MAGNESIUM LEVEL 1.8 MG/DL (1.8-2.4); POTASSIUM SERUM 4.1 MEQ/L (3.5-5.1); SODIUM LEVEL 133 MEQ/L (136-145); TOTAL PROTEIN 4.8 GM/DL (6.4-8.2)
[2017-03-27] MEDS: IPRATROPIUM 0.5MG/ALBUTEROL 2.5MG INH SOL UD 3ML (DUONEB)(J7620) NEB SCH ×4 (08:00→19:32)
[2017-03-27] MEDS: COSOPT OCUMETER PLUS 10ML (DORZOLAMIDE/TIMOLOL) OU SCH ×2 (10:11→21:57)
[2017-03-27] MEDS: METOPROLOL TART 25 MG TABLET PO SCH ×2 (10:12→21:56)
[2017-03-27] MEDS: TAMSULOSIN 0.4 MG CAP PO SCH (10:12)
[2017-03-27] MEDS: DEXTROMETHORPHAN 60MG/10ML SUSP 90ML BTL(DELSYM) PO SCH ×2 (10:12→22:32)
[2017-03-27] MEDS: FUROSEMIDE 40 MG TAB PO SCH (10:13)
[2017-03-27] MEDS: DIGOXIN 0.125 MG TAB PO SCH (10:13)
[2017-03-27] MEDS: guaiFENesin ER 600 MG TAB PO SCH ×2 (10:13→21:56)
[2017-03-27 14:00] VITALS: BP 107/71
[2017-03-27] MEDS ORDERED: FUROSEMIDE 80 MG TAB PO ONE (16:00)
[2017-03-27 20:45] VITALS: BP 105/62
[2017-03-27 21:56] VITALS: BP 105/62
[2017-03-27] MEDS: LATANOPROST 0.005% OPHTH SOLN 2.5 ML OU SCH (21:57)
[2017-03-28] MEDS: NYSTATIN 500,000 U/5 ML SUSP UDC SS SCH ×2 (05:01→10:32)
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
[2017-03-28 06:45] VITALS: BP 103/76
[2017-03-28 06:52] LABS: ALBUMIN 2.4 GM/DL (3.2-5.2); ALBUMIN/GLOBULIN RATIO 0.71 (1.00-1.93); ALKALINE PHOSPHATASE 235 U/L (45-117); ALT/SGPT 117 U/L (12-78); ANION GAP 5 MEQ/L (8-16); AST/SGOT 105 U/L (15-37); BILIRUBIN,TOTAL 6.9 MG/DL (0.2-1.0); BLOOD UREA NITROGEN 19 MG/DL (7-18); CALCIUM LEVEL 8.4 MG/DL (8.8-10.2); CARBON DIOXIDE LEVEL 31 MEQ/L (21-32); CHLORIDE LEVEL 95 MEQ/L (98-107); GLOMERULAR FILTRATION RATE > 60.0 (>35); GLUCOSE, FASTING 101 MG/DL (83-110); MAGNESIUM LEVEL 1.9 MG/DL (1.8-2.4); POTASSIUM SERUM 3.9 MEQ/L (3.5-5.1); SODIUM LEVEL 131 MEQ/L (136-145); TOTAL PROTEIN 5.8 GM/DL (6.4-8.2)
[2017-03-28 06:58] LABS: BASO # 0.1 K/mm3 (0.0-0.2); BASO % 0.7 % (0.0-1.0); EOS # 0.2 K/mm3 (0.0-0.50); LARGE UNSTAINED CELL # 0.1 K/mm3 (0.0-0.4); LARGE UNSTAINED CELL % 1.7 % (0.0-4.0); LYMPH # 1.1 K/mm3 (1.5-4.5); LYMPH % 11.9 % (24.0-44.0); MEAN CORPUSCULAR HEMOGLOBIN 28.9 pg (27.0-33.0); MEAN CORPUSCULAR HGB CONC 31.1 g/dl (32.0-36.5); MEAN CORPUSCULAR VOLUME 92.7 fl (80.0-96.0); MONO # 0.8 K/mm3 (0.0-0.8); MONO % 9.5 % (0.0-5.0); NEUTROPHILS # 5.9 K/mm3 (1.8-7.7); NEUTROPHILS % 74.3 % (36.0-66.0); PLATELET COUNT, AUTOMATED 223 k/mm3 (150-450); RED CELL DISTRIBUTION WIDTH 15.5 % (11.5-14.5)
[2017-03-28] MEDS ORDERED: METO25TA4 PO (07:01)
[2017-03-28] MEDS ORDERED: DEXT30SUSP PO (07:01)
[2017-03-28] MEDS ORDERED: NYST50SS SS (07:01)
[2017-03-28] MEDS ORDERED: CEPA1LOZ2 PO (07:01)
[2017-03-28] MEDS ORDERED: FLOM5CAP PO (07:01)
[2017-03-28] MEDS: IPRATROPIUM 0.5MG/ALBUTEROL 2.5MG INH SOL UD 3ML (DUONEB)(J7620) NEB SCH ×2 (08:00→12:00)
[2017-03-28] MEDS ORDERED: FUROSEMIDE 80 MG TAB PO SCH (09:00)
[2017-03-28] MEDS: DEXTROMETHORPHAN 60MG/10ML SUSP 90ML BTL(DELSYM) PO SCH (09:00)
[2017-03-28] MEDS: METOPROLOL TART 25 MG TABLET PO SCH (10:33)
[2017-03-28] MEDS: guaiFENesin ER 600 MG TAB PO SCH (10:34)
[2017-03-28] MEDS: DIGOXIN 0.125 MG TAB PO SCH (10:34)
[2017-03-28] MEDS: COSOPT OCUMETER PLUS 10ML (DORZOLAMIDE/TIMOLOL) OU SCH (10:34)
[2017-03-28] MEDS: TAMSULOSIN 0.4 MG CAP PO SCH (10:34)
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
== END 2017-03-28 13:16 | disposition home or self-care (01) | DRG 314 ==
LOC: M ED 12:36 → M ED INP 16:13 → M ICU 16:55 → M PCU 03-20 21:26 → M MSPAV 03-26 11:26
PROVIDERS: ADMIT Thoracic Surgery (Cardiothoracic Vascular Surgery); ATTEND Internal Medicine Nephrology
PROC: 0BH17EZ Insertion of Endotracheal Airway into Trachea, Via Natural or Artificial Opening (ICD-10-PCS; principal; 2017-03-17)
PROC: 0W9D3ZX Drainage of Pericardial Cavity, Percutaneous Approach, Diagnostic (ICD-10-PCS; 2017-03-17)
PROC: 0W9D30Z Drainage of Pericardial Cavity with Drainage Device, Percutaneous Approach (ICD-10-PCS; 2017-03-17)
PROC: 02HV33Z Insertion of Infusion Device into Superior Vena Cava, Percutaneous Approach (ICD-10-PCS; 2017-03-17)
PROC: 30253K1 (ICD-10-PCS; 2017-03-17)
PROC: 5A1945Z Respiratory Ventilation, 24-96 Consecutive Hours (ICD-10-PCS; 2017-03-17)
DX: I31.3 Pericardial effusion (noninflammatory) (principal); R57.0 Cardiogenic shock; K72.00 Acute and subacute hepatic failure without coma; J96.01 Acute respiratory failure with hypoxia; G93.41 Metabolic encephalopathy; E87.2 Acidosis; L97.929 Non-pressure chronic ulcer of unspecified part of left lower leg with unspecified severity; R64 Cachexia; J90 Pleural effusion, not elsewhere classified; I50.42 Chronic combined systolic (congestive) and diastolic (congestive) heart failure; I42.5 Other restrictive cardiomyopathy; E87.0 Hyperosmolality and hypernatremia; D68.32 Hemorrhagic disorder due to extrinsic circulating anticoagulants; B37.0 Candidal stomatitis; I48.2 Chronic atrial fibrillation; E78.00 Pure hypercholesterolemia, unspecified; I25.10 Atherosclerotic heart disease of native coronary artery without angina pectoris; I27.2 Other secondary pulmonary hypertension; I11.0 Hypertensive heart disease with heart failure; D72.829 Elevated white blood cell count, unspecified; I08.1 Rheumatic disorders of both mitral and tricuspid valves; F03.90 Unspecified dementia, unspecified severity, without behavioral disturbance, psychotic disturbance, mood disturbance, and anxiety; I31.4 Cardiac tamponade; I95.9 Hypotension, unspecified; R33.9 Retention of urine, unspecified; Z95.0 Presence of cardiac pacemaker; Z95.5 Presence of coronary angioplasty implant and graft; Z91.14 Patient's other noncompliance with medication regimen; Z79.82 Long term (current) use of aspirin; Z79.01 Long term (current) use of anticoagulants; Z79.899 Other long term (current) drug therapy; Z79.52 Long term (current) use of systemic steroids; Z68.22 Body mass index [BMI] 22.0-22.9, adult

== ENCOUNTER → 2017-04-08 | Outpatient (CLI) | payer MEDICARE ==
[~2017-04-08] MED LIST: ASPI81TA85 PO; ATEN25TA PO; CEPA1LOZ2 PO; CRES10TA32 PO; DEXT30SUSP PO; DIGO0.12 PO; DIGO0.25 PO; DORZ2SOL5 OU; FLOM5CAP PO; FURO1TAB15 PO; LATA5OPD OU; METO25TAB PO; NYST50SS SS; PRED10PA PO; PRED10TA PO; ROSU20TA PO; WARF4TAB51 PO
--- NOTE | 2017-04-08 12:14 | REP ---
Clinical: Follow up thoracentesis. Comparison: 03/22/2017. Findings: Minimal bibasilar pleuroparenchymal changes including blunting to the bilateral costophrenic angles (right greater than left) may represent small residual pleural reactions. Overall appearance is significantly improved compared to prior examination. No pneumothorax. Mediastinum and cardiac silhouette stable. Skeletal structures intact. Impression: Small residual bibasilar pleuroparenchymal changes (right greater than left). Overall appearance is significantly improved compared to prior examination. Signed by Arnulfo Kumari MD 04/08/2017 09:58 A
== END ==
LOC: M SMT 09:39
PROVIDERS: ATTEND Thoracic Surgery (Cardiothoracic Vascular Surgery)
DX: R06.02 Shortness of breath (principal)

== ENCOUNTER → 2017-05-21 | Outpatient (REF) | payer MEDICARE ==
[~2017-05-21] MED LIST changes: -FURO1TAB15 PO; +FURO80TA2 PO; +METO25TA4 PO; -METO25TAB PO; -PRED10TA PO; +PRED10TA2 PO
[2017-05-21 16:51] LABS: MEAN CORPUSCULAR HGB CONC 32.6 g/dl (32.0-36.5); MEAN CORPUSCULAR VOLUME 91.9 fl (80.0-96.0); RED CELL DISTRIBUTION WIDTH 15.8 % (11.5-14.5)
[2017-05-21 17:49] LABS: ALBUMIN 3.4 GM/DL (3.2-5.2); ALBUMIN/GLOBULIN RATIO 1.26 (1.00-1.93); ALKALINE PHOSPHATASE 103 U/L (45-117); ALT/SGPT 30 U/L (12-78); ANION GAP 4 MEQ/L (8-16); AST/SGOT 28 U/L (15-37); BILIRUBIN,TOTAL 1.1 MG/DL (0.2-1.0); BLOOD UREA NITROGEN 15 MG/DL (7-18); CALCIUM LEVEL 9.3 MG/DL (8.8-10.2); CARBON DIOXIDE LEVEL 30 MEQ/L (21-32); CHLORIDE LEVEL 106 MEQ/L (98-107); CREATININE FOR GFR 0.76 MG/DL (0.70-1.30); GLOMERULAR FILTRATION RATE > 60.0 (>35); GLUCOSE, FASTING 100 MG/DL (83-110); MAGNESIUM LEVEL 2.2 MG/DL (1.8-2.4); SODIUM LEVEL 140 MEQ/L (136-145); TOTAL PROTEIN 6.1 GM/DL (6.4-8.2)
== END ==
LOC: M SFHCPLAZ 13:44
PROVIDERS: ATTEND Internal Medicine
DX: I31.3 Pericardial effusion (noninflammatory) (principal); R74.8 Abnormal levels of other serum enzymes; I50.30 Unspecified diastolic (congestive) heart failure

== ENCOUNTER → 2017-06-11 | Outpatient (REF) | payer MEDICARE ==
[2017-06-11 11:47] LABS: MEAN CORPUSCULAR HEMOGLOBIN 29.9 pg (27.0-33.0); MEAN CORPUSCULAR HGB CONC 32.9 g/dl (32.0-36.5); MEAN CORPUSCULAR VOLUME 90.9 fl (80.0-96.0); RED CELL DISTRIBUTION WIDTH 15.7 % (11.5-14.5); WHITE BLOOD COUNT 6.5 K/mm3 (4.0-10.0)
[2017-06-11 12:06] LABS: ALBUMIN 3.6 GM/DL (3.2-5.2); ANION GAP 7 MEQ/L (8-16); BLOOD UREA NITROGEN 17 MG/DL (7-18); CALCIUM LEVEL 9.5 MG/DL (8.8-10.2); CARBON DIOXIDE LEVEL 30 MEQ/L (21-32); CHLORIDE LEVEL 104 MEQ/L (98-107); CREATININE FOR GFR 0.74 MG/DL (0.70-1.30); GLOMERULAR FILTRATION RATE > 60.0 (>35); GLUCOSE, FASTING 90 MG/DL (83-110); MAGNESIUM LEVEL 2.2 MG/DL (1.8-2.4); POTASSIUM SERUM 3.8 MEQ/L (3.5-5.1); SODIUM LEVEL 141 MEQ/L (136-145)
== END ==
LOC: M LABDRAWP 11:05
PROVIDERS: ATTEND Physician Assistant
DX: I50.42 Chronic combined systolic (congestive) and diastolic (congestive) heart failure (principal); I48.2 Chronic atrial fibrillation

== ENCOUNTER → 2017-06-23 | Outpatient (REF) | payer MEDICARE | LOC: M LAB REF 11:21 | PROVIDERS: ATTEND Physician Assistant | DX: I48.2 Chronic atrial fibrillation (principal); Z12.11 Encounter for screening for malignant neoplasm of colon ==

== ENCOUNTER → 2017-09-03 | Outpatient (REF) | payer MEDICARE | LOC: M SFHCPLAZ 13:45 | PROVIDERS: ATTEND Internal Medicine | DX: J30.9 Allergic rhinitis, unspecified (principal); I50.30 Unspecified diastolic (congestive) heart failure; E78.00 Pure hypercholesterolemia, unspecified ==

== ENCOUNTER → 2017-09-03 | Outpatient (REF) | payer MEDICARE ==
[2017-09-03 16:21] LABS: ALBUMIN 3.9 GM/DL (3.2-5.2); ANION GAP 7 MEQ/L (8-16); BLOOD UREA NITROGEN 17 MG/DL (7-18); CALCIUM LEVEL 9.5 MG/DL (8.8-10.2); CARBON DIOXIDE LEVEL 29 MEQ/L (21-32); CHLORIDE LEVEL 103 MEQ/L (98-107); GLOMERULAR FILTRATION RATE > 60.0 (>35); GLUCOSE, FASTING 89 MG/DL (83-110); MAGNESIUM LEVEL 2.4 MG/DL (1.8-2.4); PHOSPHORUS LEVEL 3.1 MG/DL (2.5-4.9); POTASSIUM SERUM 4.3 MEQ/L (3.5-5.1); SODIUM LEVEL 139 MEQ/L (136-145)
== END ==
LOC: M LAB REF 15:03
PROVIDERS: ATTEND Physician Assistant
DX: I50.42 Chronic combined systolic (congestive) and diastolic (congestive) heart failure (principal)

== ENCOUNTER → 2017-11-28 | Outpatient (REF) | payer MEDICARE ==
[2017-11-28 17:41] LABS: NT-PRO BNP 1443 PG/ML (<450)
[2017-11-28 17:48] LABS: VITAMIN B12 LEVEL 563 PG/ML (247-911)
== END ==
LOC: M SFHCPLAZ 15:29
DX: G57.93 Unspecified mononeuropathy of bilateral lower limbs (principal); I50.810 Right heart failure, unspecified
CPT/HCPCS: 82607

== ENCOUNTER → 2017-12-24 | Outpatient (CLI) | payer MEDICARE | LOC: M RAD 09:10 | DX: L97.812 Non-pressure chronic ulcer of other part of right lower leg with fat layer exposed (principal); L97.822 Non-pressure chronic ulcer of other part of left lower leg with fat layer exposed; I87.333 Chronic venous hypertension (idiopathic) with ulcer and inflammation of bilateral lower extremity; I70.202 Unspecified atherosclerosis of native arteries of extremities, left leg | CPT/HCPCS: 93925 ==

== ENCOUNTER → 2017-12-31 | Outpatient (REF) | payer MEDICARE ==
[2017-12-31 13:37] LABS: HEMATOCRIT 40.5 % (42.0-52.0); HEMOGLOBIN 13.2 g/dl (14.0-18.0); MEAN CORPUSCULAR HEMOGLOBIN 28.9 pg (27.0-33.0); MEAN CORPUSCULAR HGB CONC 32.6 g/dl (32.0-36.5); MEAN CORPUSCULAR VOLUME 88.8 fl (80.0-96.0); PLATELET COUNT, AUTOMATED 245 10^3/uL (150-450); RED BLOOD COUNT 4.56 10^6/uL (4.30-6.10); WHITE BLOOD COUNT 5.6 10^3/uL (4.0-10.0)
[2017-12-31 13:45] LABS: ALBUMIN 3.7 GM/DL (3.2-5.2); ALBUMIN/GLOBULIN RATIO 1.32 (1.00-1.93); ALKALINE PHOSPHATASE 141 U/L (45-117); ALT/SGPT 32 U/L (12-78); ANION GAP 7 MEQ/L (8-16); AST/SGOT 49 U/L (7-37); BLOOD UREA NITROGEN 24 MG/DL (7-18); CALCIUM LEVEL 9.5 MG/DL (8.8-10.2); CARBON DIOXIDE LEVEL 30 MEQ/L (21-32); CHLORIDE LEVEL 108 MEQ/L (98-107); CHOLESTEROL LEVEL 155 MG/DL (<200); CREATININE FOR GFR 0.88 MG/DL (0.70-1.30); GLOMERULAR FILTRATION RATE > 60.0 (>35); GLUCOSE, FASTING 85 MG/DL (70-100); HDL CHOLESTEROL 54 MG/DL (>40); LDL CHOLESTEROL 91.6 MG/DL (<100); MAGNESIUM LEVEL 2.5 MG/DL (1.8-2.4); NON-HDL-C 101 MG/DL; POTASSIUM SERUM 4.1 MEQ/L (3.5-5.1); SODIUM LEVEL 145 MEQ/L (136-145); TOTAL PROTEIN 6.5 GM/DL (6.4-8.2); TRIGLYCERIDES LEVEL 47 MG/DL (<150)
== END ==
LOC: M SFHCPLAZ 10:50
DX: E78.00 Pure hypercholesterolemia, unspecified (principal); Z79.01 Long term (current) use of anticoagulants; I50.30 Unspecified diastolic (congestive) heart failure
CPT/HCPCS: 83735

== ENCOUNTER 2018-01-13 15:07 | Emergency (ER) | payer MEDICARE ==
[2018-01-13 16:30] LABS: VENOUS BASE EXCESS -0.9 (-2.0-2.0); VENOUS HCO3 26.4 MEQ/L (23.0-27.0); VENOUS O2 SATURATION 36.4 % (60.0-80.0); VENOUS PARTIAL PRESSURE CO2 53.6 mmHg (38.0-50.0); VENOUS PARTIAL PRESSURE O2 26.1 mmHg (30.0-50.0); VENOUS STANDARD HCO3 22.1 MEQ/L
[2018-01-13 16:32] LABS: BASO # 0.1 10^3/uL (0.0-0.2); EOS # 0.1 10^3/uL (0.0-0.50); EOS % 1.8 % (0.0-3.0); HEMATOCRIT 45.6 % (42.0-52.0); HEMOGLOBIN 14.7 g/dl (13.5-17.5); IMMATURE GRANULOCYTE % 0.2 % (0-3.0); LYMPH # 0.8 10^3/uL (1.5-4.5); LYMPH % 15.4 % (24.0-44.0); MEAN CORPUSCULAR HEMOGLOBIN 29.2 pg (27.0-33.0); MEAN CORPUSCULAR HGB CONC 32.2 g/dl (32.0-36.5); MEAN CORPUSCULAR VOLUME 90.7 fl (80.0-96.0); MONO # 0.8 10^3/uL (0.0-0.8); MONO % 15.2 % (0.0-5.0); NEUTROPHILS # 3.4 10^3/uL (1.8-7.7); NEUTROPHILS % 66.4 % (36.0-66.0); PLATELET COUNT, AUTOMATED 223 10^3/uL (150-450); RED BLOOD COUNT 5.03 10^6/uL (4.30-6.10); RED CELL DISTRIBUTION WIDTH 16.5 % (11.5-14.5); WHITE BLOOD COUNT 5.1 10^3/uL (4.0-10.0)
[2018-01-13 16:43] LABS: INR 1.34; PROTHROMBIN TIME 16.9 SECONDS (12.4-14.5)
[2018-01-13 16:56] LABS: ALBUMIN 3.8 GM/DL (3.2-5.2); ALBUMIN/GLOBULIN RATIO 1.31 (1.00-1.93); ALKALINE PHOSPHATASE 146 U/L (45-117); ALT/SGPT 38 U/L (12-78); ANION GAP 6 MEQ/L (8-16); AST/SGOT 71 U/L (7-37); BILIRUBIN,DIRECT 0.9 MG/DL (0.0-0.2); BILIRUBIN,TOTAL 2.3 MG/DL (0.2-1.0); BLOOD UREA NITROGEN 29 MG/DL (7-18); CALCIUM LEVEL 9.7 MG/DL (8.8-10.2); CARBON DIOXIDE LEVEL 27 MEQ/L (21-32); CHLORIDE LEVEL 109 MEQ/L (98-107); CPK CREATINE PHOSPHOKINASE 285 U/L (39-308); CREATININE FOR GFR 1.17 MG/DL (0.70-1.30); GLOMERULAR FILTRATION RATE > 60.0 (>35); GLUCOSE, FASTING 99 MG/DL (70-100); POTASSIUM SERUM 4.6 MEQ/L (3.5-5.1); SODIUM LEVEL 142 MEQ/L (136-145); TOTAL PROTEIN 6.7 GM/DL (6.4-8.2)
[2018-01-13 17:02] LABS: CK-MB VALUE MASS 14.7 NG/ML (<3.6); MB/CK RELATIVE INDEX 5.15 (< OR =4); NT-PRO BNP 2991 PG/ML (<450)
[2018-01-13 17:20] LABS: TROPONIN I 2.92 NG/ML (< 0.10)
[2018-01-13 17:21] LABS: LACTIC ACID SEPSIS PROTOCOL 2.5 MMOL/L (0.4-2.0)
[2018-01-13 17:33] LABS: ABG BASE EXCESS -2.4 (-2.0-2.0); ABG HCO3 20.4 MEQ/L (22.0-26.0); ABG PARTIAL PRESSURE CO2 30.1 mmHg (35.0-45.0); ABG PARTIAL PRESSURE O2 83.4 mmHg (75.0-100.0); ABG STANDARD HCO3 22.4 MEQ/L (22.0-26.0); ABG TOTAL CO2 21.3 MEQ/L (23.0-31.0); ABG pH (ARTERIAL) 7.448 UNITS (7.350-7.450)
[2018-01-13 18:14] LABS: DIGOXIN LEVEL < 0.1 NG/ML (0.5-2.0)
[2018-01-13] MEDS: HEPARIN SOD (PORCINE) 5000 UNITS/ML VIAL IV ×3 (18:30)
[2018-01-13] MEDS: HEPARIN DRIP 25,000 UNITS in APPROPRIATE DILUENT 1 EA IV ×3 (18:30)
[2018-01-13] MEDS: ASPIRIN 81 MG CHEW TABLET PO ×3 (18:30)
== END 2018-01-13 18:38 | disposition short-term general hospital (02) ==
LOC: M ED 15:07
DX: I21.4 Non-ST elevation (NSTEMI) myocardial infarction (principal); Z95.0 Presence of cardiac pacemaker; J90 Pleural effusion, not elsewhere classified; I48.91 Unspecified atrial fibrillation; I25.10 Atherosclerotic heart disease of native coronary artery without angina pectoris; I50.9 Heart failure, unspecified; G50.0 Trigeminal neuralgia; I49.5 Sick sinus syndrome; I87.2 Venous insufficiency (chronic) (peripheral); H40.9 Unspecified glaucoma; Z79.82 Long term (current) use of aspirin; Z79.899 Other long term (current) drug therapy; Z88.8 Allergy status to other drugs, medicaments and biological substances
CPT/HCPCS: 71046

== ENCOUNTER 2018-02-23 14:44 | Inpatient (IN) | payer MEDICARE ==
[2018-02-23] MEDS: ALBUTEROL SULFATE 2.5 MG/0.5 ML INH NEB SOLN INH (15:00)
[2018-02-23] MEDS: IPRATROPIUM 0.5MG/ALBUTEROL 2.5MG INH SOL UD 3ML (DUONEB)(J7620) NEB (15:00)
[2018-02-23] MEDS: methylPREDNISolone INJ 125 MG/2 ML VIAL (J2930) IV (15:00)
[2018-02-23 15:14] LABS: HEMATOCRIT 44.1 % (42.0-52.0); HEMOGLOBIN 14.7 g/dl (13.5-17.5); IMMATURE GRANULOCYTE % 0.5 % (0-3.0); LYMPH % 7.6 % (24.0-44.0); MEAN CORPUSCULAR HEMOGLOBIN 29.1 pg (27.0-33.0); MEAN CORPUSCULAR HGB CONC 33.3 g/dl (32.0-36.5); MEAN CORPUSCULAR VOLUME 87.2 fl (80.0-96.0); MONO # 0.3 10^3/uL (0.0-0.8); MONO % 7.8 % (0.0-5.0); NEUTROPHILS # 3.2 10^3/uL (1.8-7.7); NEUTROPHILS % 83.1 % (36.0-66.0); PLATELET COUNT, AUTOMATED 160 10^3/uL (150-450); RED BLOOD COUNT 5.06 10^6/uL (4.30-6.10); RED CELL DISTRIBUTION WIDTH 17.4 % (11.5-14.5); WHITE BLOOD COUNT 3.8 10^3/uL (4.0-10.0)
[2018-02-23] MEDS: ACETAMINOPHEN TAB 650MG DOSE (2X325MG) PO (15:15)
[2018-02-23 15:25] LABS: INR 1.42; PROTHROMBIN TIME 17.7 SECONDS (12.4-14.5)
[2018-02-23 15:28] LABS: ABG BASE EXCESS -0.4 (-2.0-2.0); ABG HCO3 20.8 MEQ/L (22.0-26.0); ABG O2 SATURATION 94.5 % (95.0-99.0); ABG PARTIAL PRESSURE O2 65.2 mmHg (75.0-100.0); ABG STANDARD HCO3 24.1 MEQ/L (22.0-26.0); ABG TOTAL CO2 21.6 MEQ/L (23.0-31.0); ABG pH (ARTERIAL) 7.521 UNITS (7.350-7.450)
[2018-02-23] MEDS: NS 500 ML IV ×2 (15:30→16:00)
[2018-02-23 15:32] LABS: LYMPH # 0.3 10^3/uL (1.5-4.5); POSITIVE DIFF POS FLAG
[2018-02-23 15:40] LABS: AMMONIA < 10 uMOL/L (<32)
[2018-02-23 15:45] LABS: ALBUMIN 3.4 GM/DL (3.2-5.2); ALBUMIN/GLOBULIN RATIO 1.03 (1.00-1.93); ALKALINE PHOSPHATASE 156 U/L (45-117); ALT/SGPT 25 U/L (12-78); ANION GAP 9 MEQ/L (8-16); AST/SGOT 55 U/L (7-37); BILIRUBIN,DIRECT 1.5 MG/DL (0.0-0.2); BILIRUBIN,TOTAL 3.1 MG/DL (0.2-1.0); BLOOD UREA NITROGEN 18 MG/DL (7-18); CALCIUM LEVEL 8.8 MG/DL (8.8-10.2); CARBON DIOXIDE LEVEL 24 MEQ/L (21-32); CHLORIDE LEVEL 103 MEQ/L (98-107); CPK CREATINE PHOSPHOKINASE 287 U/L (39-308); CREATININE FOR GFR 1.21 MG/DL (0.70-1.30); GLOMERULAR FILTRATION RATE > 60.0 (>35); GLUCOSE, FASTING 108 MG/DL (70-100); POTASSIUM SERUM 4.5 MEQ/L (3.5-5.1); SODIUM LEVEL 136 MEQ/L (136-145); TOTAL PROTEIN 6.7 GM/DL (6.4-8.2); TROPONIN I 0.12 NG/ML (< 0.10)
[2018-02-23 15:51] LABS: LACTIC ACID SEPSIS PROTOCOL 2.9 MMOL/L (0.4-2.0)
[2018-02-23 15:55] LABS: CK-MB VALUE MASS 1.8 NG/ML (<3.6); DIGOXIN LEVEL 0.1 NG/ML (0.5-2.0); MB/CK RELATIVE INDEX 0.62 (< OR =4); NT-PRO BNP 8686 PG/ML (<450)
[2018-02-23] MEDS: PIPERACILLIN/TAZOBACTAM SOD 3.375 GM in D5W MINI-BAG PLUS 50 ML IV (16:00)
[2018-02-23 16:20] LABS: KETONE, URINE AUTO RFX NEGATIVE (NEGATIVE); LEUKOCYTE ESTERASE UR AUTO RFX NEGATIVE (NEGATIVE); MUCUS, URINE RFX SMALL (NEGATIVE); NITRITE, URINE AUTO RFX NEGATIVE (NEGATIVE); RBC, URINE AUTO RFX 4 /HPF (0-3); SPECIFIC GRAVITY UR AUTO RFX 1.017 (1.002-1.035); SQUAM EPITHELIAL CELL UR AURFX 0 /HPF (0-6); WBC, URINE AUTO RFX 1 /HPF (0-3)
[2018-02-23 16:57] LABS: INFLUENZA A AMPLIFICATION NEGATIVE (NEGATIVE); INFLUENZA B AMPLIFICATION NEGATIVE (NEGATIVE)
[2018-02-23] MEDS ORDERED: ISOVUE-370 76% 100ML VIAL (Q9967) As Ordered (17:07)
[2018-02-23] MEDS: NS 1,000 ML IV (17:15)
[2018-02-23] MEDS ORDERED: NS 1,000 ML IV (17:30)
[2018-02-23] MEDS ORDERED: ONDANSETRON 4MG/2ML VIAL (J2405) IV (17:30)
[2018-02-23 18:16] LABS: C REACTIVE PROTEIN QUANTITATIV 3.75 MG/DL (0.00-0.30); LIPASE 120 U/L (73-393)
[2018-02-23] MEDS ORDERED: PILL CRUSHER/CUTTER 1 EACH XX (19:30)
[2018-02-23] MEDS: PANTOPRAZOLE 40MG INJ (PROTONIX) (C9113) IV (19:51)
[2018-02-23] MEDS: DIGOXIN INJ 0.5 MG/2 ML AMP (J1160) IV (19:51)
[2018-02-23] MEDS: VANCOMYCIN HCL 1,000 MG, VIAL MATE ADAPTER 1 EACH in D5W 250 ML IV (19:51)
[2018-02-23 20:25] LABS: LACTIC ACID SEPSIS PROTOCOL 1.6 MMOL/L (0.4-2.0)
[2018-02-23] MEDS: DIGOXIN 0.125 MG TAB PO (21:00)
[2018-02-23] MEDS: ASPIRIN 81 MG ENTERIC TAB PO (21:00)
[2018-02-23] MEDS: SENOKOT S TAB PO (21:00)
[2018-02-23] MEDS: HEPARIN SOD (PORCINE) 5000 UNITS/ML VIAL SC (21:25)
[2018-02-23] MEDS: COSOPT OCUMETER PLUS 10ML (DORZOLAMIDE/TIMOLOL) OU (21:25)
[2018-02-23] MEDS: MEROPENEM INJ 1 GM in APPROPRIATE DILUENT 1 EA IV (21:25)
[2018-02-23] MEDS: LATANOPROST 0.005% OPHTH SOLN 2.5 ML OU (21:25)
[2018-02-23 21:50] LABS: CPK CREATINE PHOSPHOKINASE 299 U/L (39-308)
[2018-02-23 21:51] LABS: CK-MB VALUE MASS 2.1 NG/ML (<3.6)
[2018-02-23] MEDS: SODIUM CHLORIDE 0.9% INJ 10 ML SYR IV (21:52)
[2018-02-23 22:08] LABS: TROPONIN I 0.17 NG/ML (< 0.10)
[2018-02-24] MEDS: SODIUM CHLORIDE 0.9% INJ 10 ML SYR IV ×3 (06:04→21:50)
[2018-02-24] MEDS: HEPARIN SOD (PORCINE) 5000 UNITS/ML VIAL SC ×3 (06:04→21:49)
[2018-02-24] MEDS: MEROPENEM INJ 1 GM in APPROPRIATE DILUENT 1 EA IV ×3 (06:04→21:49)
[2018-02-24 06:45] LABS: HEMATOCRIT 38.8 % (42.0-52.0); MEAN CORPUSCULAR HEMOGLOBIN 28.9 pg (27.0-33.0); MEAN CORPUSCULAR HGB CONC 33.5 g/dl (32.0-36.5); MEAN CORPUSCULAR VOLUME 86.2 fl (80.0-96.0); PLATELET COUNT, AUTOMATED 123 10^3/uL (150-450); WHITE BLOOD COUNT 2.4 10^3/uL (4.0-10.0)
[2018-02-24 07:06] LABS: ALBUMIN/GLOBULIN RATIO 0.88 (1.00-1.93); ALKALINE PHOSPHATASE 115 U/L (45-117); ALT/SGPT 18 U/L (12-78); ANION GAP 5 MEQ/L (8-16); AST/SGOT 45 U/L (7-37); BLOOD UREA NITROGEN 21 MG/DL (7-18); C REACTIVE PROTEIN QUANTITATIV 3.85 MG/DL (0.00-0.30); CALCIUM LEVEL 7.8 MG/DL (8.8-10.2); CARBON DIOXIDE LEVEL 25 MEQ/L (21-32); CHLORIDE LEVEL 105 MEQ/L (98-107); CREATININE FOR GFR 0.87 MG/DL (0.70-1.30); GLOMERULAR FILTRATION RATE > 60.0 (>35); GLUCOSE, FASTING 147 MG/DL (70-100); MAGNESIUM LEVEL 2.2 MG/DL (1.8-2.4); POTASSIUM SERUM 4.1 MEQ/L (3.5-5.1); SODIUM LEVEL 135 MEQ/L (136-145)
[2018-02-24 07:19] LABS: ALBUMIN 2.2 GM/DL (3.2-5.2); TOTAL PROTEIN 4.7 GM/DL (6.4-8.2)
[2018-02-24] MEDS: CLOPIDOGREL 75 MG TAB PO (08:04)
[2018-02-24] MEDS: VANCOMYCIN HCL 1,000 MG, VIAL MATE ADAPTER 1 EACH in D5W 250 ML IV ×2 (08:04→19:40)
[2018-02-24] MEDS: ROSUVASTATIN 10 MG TAB (CRESTOR) PO (08:04)
[2018-02-24] MEDS: SENOKOT S TAB PO ×2 (08:04→20:07)
[2018-02-24] MEDS: COSOPT OCUMETER PLUS 10ML (DORZOLAMIDE/TIMOLOL) OU ×2 (08:05→20:07)
[2018-02-24] MEDS: DIGOXIN 0.125 MG TAB PO (16:08)
[2018-02-24] MEDS: PANTOPRAZOLE 40MG INJ (PROTONIX) (C9113) IV (17:55)
[2018-02-24] MEDS: ACETAMINOPHEN TAB 650MG DOSE (2X325MG) PO (20:06)
[2018-02-24] MEDS: LATANOPROST 0.005% OPHTH SOLN 2.5 ML OU (20:07)
[2018-02-24] MEDS: ASPIRIN 81 MG ENTERIC TAB PO (20:07)
[2018-02-25] MEDS: ACETAMINOPHEN TAB 650MG DOSE (2X325MG) PO ×4 (01:05→19:22)
[2018-02-25] MEDS: MEROPENEM INJ 1 GM in APPROPRIATE DILUENT 1 EA IV ×3 (05:20→21:57)
[2018-02-25] MEDS: SODIUM CHLORIDE 0.9% INJ 10 ML SYR IV ×3 (05:44→21:59)
[2018-02-25] MEDS: HEPARIN SOD (PORCINE) 5000 UNITS/ML VIAL SC ×2 (05:45→14:00)
[2018-02-25 06:07] LABS: HEMATOCRIT 40.4 % (42.0-52.0); HEMOGLOBIN 13.8 g/dl (13.5-17.5); MEAN CORPUSCULAR HGB CONC 34.2 g/dl (32.0-36.5); MEAN CORPUSCULAR VOLUME 84.9 fl (80.0-96.0); RED BLOOD COUNT 4.76 10^6/uL (4.30-6.10); RED CELL DISTRIBUTION WIDTH 16.9 % (11.5-14.5); WHITE BLOOD COUNT 3.3 10^3/uL (4.0-10.0)
[2018-02-25 06:34] LABS: IMMATURE PLATELET FRACTION % 7.7 % (0.0-10.9); PLATELET COUNT, AUTOMATED 85 10^3/uL (150-450)
[2018-02-25 06:34] LABS: VANCOMYCIN LEVEL TROUGH 13.1 UG/ML (10.0-20.0)
[2018-02-25 06:35] LABS: ALBUMIN 2.7 GM/DL (3.2-5.2); ALKALINE PHOSPHATASE 135 U/L (45-117); ALT/SGPT 25 U/L (12-78); ANION GAP 7 MEQ/L (8-16); AST/SGOT 77 U/L (7-37); BLOOD UREA NITROGEN 31 MG/DL (7-18); C REACTIVE PROTEIN QUANTITATIV 4.31 MG/DL (0.00-0.30); CALCIUM LEVEL 8.2 MG/DL (8.8-10.2); CARBON DIOXIDE LEVEL 23 MEQ/L (21-32); CHLORIDE LEVEL 103 MEQ/L (98-107); CREATININE FOR GFR 0.98 MG/DL (0.70-1.30); GLOMERULAR FILTRATION RATE > 60.0 (>35); GLUCOSE, FASTING 82 MG/DL (70-100); MAGNESIUM LEVEL 2.2 MG/DL (1.8-2.4); POTASSIUM SERUM 4.1 MEQ/L (3.5-5.1); SODIUM LEVEL 133 MEQ/L (136-145); TOTAL PROTEIN 5.7 GM/DL (6.4-8.2)
[2018-02-25] MEDS: VANCOMYCIN HCL 1,000 MG, VIAL MATE ADAPTER 1 EACH in D5W 250 ML IV ×2 (08:07→19:50)
[2018-02-25] MEDS: SENOKOT S TAB PO ×2 (08:08→20:24)
[2018-02-25] MEDS: CLOPIDOGREL 75 MG TAB PO (08:08)
[2018-02-25] MEDS: COSOPT OCUMETER PLUS 10ML (DORZOLAMIDE/TIMOLOL) OU ×2 (08:09→20:26)
[2018-02-25 08:24] LABS: DIGOXIN LEVEL 0.8 NG/ML (0.5-2.0)
[2018-02-25] MEDS: DIGOXIN INJ 0.5 MG/2 ML AMP (J1160) IV (09:54)
[2018-02-25] MEDS: PANTOPRAZOLE 40MG INJ (PROTONIX) (C9113) IV (17:18)
[2018-02-25] MEDS: ASPIRIN 81 MG ENTERIC TAB PO (20:24)
[2018-02-25] MEDS: DIGOXIN 0.25 MG TAB PO (20:25)
[2018-02-25] MEDS: LATANOPROST 0.005% OPHTH SOLN 2.5 ML OU (20:26)
[2018-02-26 00:07] LABS: Lyme Disease IgG/IgM Antibodie <0.91 ISR (0.00-0.90); Lyme Disease IgM Ab Quantitati <0.80 index (0.00-0.79)
[2018-02-26] MEDS: ACETAMINOPHEN TAB 650MG DOSE (2X325MG) PO ×2 (00:11→20:13)
[2018-02-26] MEDS: SODIUM CHLORIDE 0.9% INJ 10 ML SYR IV ×3 (05:42→21:42)
[2018-02-26] MEDS: MEROPENEM INJ 1 GM in APPROPRIATE DILUENT 1 EA IV ×3 (05:52→21:41)
[2018-02-26 06:10] LABS: ALBUMIN 2.4 GM/DL (3.2-5.2); ALBUMIN/GLOBULIN RATIO 0.92 (1.00-1.93); ALKALINE PHOSPHATASE 181 U/L (45-117); ALT/SGPT 41 U/L (12-78); ANION GAP 9 MEQ/L (8-16); AST/SGOT 157 U/L (7-37); BILIRUBIN,TOTAL 3.8 MG/DL (0.2-1.0); BLOOD UREA NITROGEN 30 MG/DL (7-18); C REACTIVE PROTEIN QUANTITATIV 9.41 MG/DL (0.00-0.30); CALCIUM LEVEL 7.9 MG/DL (8.8-10.2); CARBON DIOXIDE LEVEL 23 MEQ/L (21-32); CHLORIDE LEVEL 103 MEQ/L (98-107); CREATININE FOR GFR 0.85 MG/DL (0.70-1.30); GLOMERULAR FILTRATION RATE > 60.0 (>35); GLUCOSE, FASTING 67 MG/DL (70-100); MAGNESIUM LEVEL 2.2 MG/DL (1.8-2.4); POTASSIUM SERUM 3.9 MEQ/L (3.5-5.1); SODIUM LEVEL 135 MEQ/L (136-145)
[2018-02-26 06:11] LABS: HEMATOCRIT 39.1 % (42.0-52.0); HEMOGLOBIN 13.5 g/dl (13.5-17.5); MEAN CORPUSCULAR HGB CONC 34.5 g/dl (32.0-36.5); MEAN CORPUSCULAR VOLUME 83.9 fl (80.0-96.0); RED BLOOD COUNT 4.66 10^6/uL (4.30-6.10); WHITE BLOOD COUNT 4.2 10^3/uL (4.0-10.0)
[2018-02-26 06:15] LABS: PLATELET COUNT, AUTOMATED 57 10^3/uL (150-450); POSITIVE MORPH POS FLAG; SUSPECT SAMPLE POS FLAG
[2018-02-26 06:53] LABS: BILIRUBIN,DIRECT 2.9 MG/DL (0.0-0.2)
[2018-02-26] MEDS: SENOKOT S TAB PO ×2 (09:00→20:10)
[2018-02-26] MEDS ORDERED: DIGOXIN INJ 0.5 MG/2 ML AMP (J1160) IV (09:00)
[2018-02-26 09:11] LABS: BEDSIDE GLUCOSE 92 MG/DL (83-110)
[2018-02-26] MEDS: COSOPT OCUMETER PLUS 10ML (DORZOLAMIDE/TIMOLOL) OU ×2 (09:18→20:10)
[2018-02-26] MEDS: CLOPIDOGREL 75 MG TAB PO (09:18)
[2018-02-26] MEDS: ROSUVASTATIN 10 MG TAB (CRESTOR) PO (09:18)
[2018-02-26] MEDS: VANCOMYCIN HCL 1,000 MG, VIAL MATE ADAPTER 1 EACH in D5W 250 ML IV ×2 (09:19→20:10)
[2018-02-26 10:08] LABS: LDH LACTATE DEHYDROGENASE 630 U/L (87-241)
[2018-02-26] MEDS ORDERED: LIDOCAINE 1% MDV 20ML VIAL As Ordered (11:54)
[2018-02-26 13:03] LABS: BF MONONUCLEAR CELL % 12.1 % (0-0); BF POLYMORPHONUCLEAR CELL % 87.9 % (0-0); RBC BODY FLUID < 2 10^3/uL (<2); WBC BODY FLUID 1328 /uL (0-10)
[2018-02-26 13:08] LABS: PLEURAL FL COLOR YELLOW (COLORLESS); SOURCE, BODY FLUID PLEURAL
[2018-02-26 13:09] LABS: APPEARANCE, BODY FLUID CLOUDY (CLEAR); BF DIFF IF INDICATED? YES (NO); PH BODY FLUID 7.777 UNITS (NOT ESTABLISHED); SOURCE, BODY FLUID pH PLEURAL
[2018-02-26 13:29] LABS: AMYLASE, BODY FLUID 28 U/L (NOT ESTABLISHED); CHOLESTEROL, BODY FLUID < 50 MG/DL (NOT ESTABLISHED); LDH, BODY FLUID 237 U/L (NOT ESTABLISHED); SOURCE, BODY FLUID ALBUMIN PLEURAL; SOURCE, BODY FLUID AMYLASE PLEURAL; SOURCE, BODY FLUID CHOL PLEURAL; SOURCE, BODY FLUID GLUCOSE PLEURAL; SOURCE, BODY FLUID LDH PLEURAL; SOURCE, BODY FLUID TOT PROTEIN PLEURAL; SOURCE, BODY FLUID TRIG PLEURAL; TOTAL PROTEIN, BODY FLUID 1.7 G/DL (NOT ESTABLISHED); TRIGLYCERIDE, BODY FLUID 8 MG/DL (NOT ESTABLISHED)
[2018-02-26] MEDS ORDERED: PERCOCET 5MG/325MG TAB PO (16:45)
[2018-02-26] MEDS: PANTOPRAZOLE 40MG INJ (PROTONIX) (C9113) IV (19:11)
[2018-02-26] MEDS: DIGOXIN 0.25 MG TAB PO (20:10)
[2018-02-26] MEDS: LATANOPROST 0.005% OPHTH SOLN 2.5 ML OU (20:10)
[2018-02-26] MEDS: ASPIRIN 81 MG ENTERIC TAB PO (20:10)
[2018-02-26] MEDS: EUCERIN 120GM CREAM TOP (20:11)
[2018-02-27] MEDS: SODIUM CHLORIDE 0.9% INJ 10 ML SYR IV ×3 (05:02→21:49)
[2018-02-27] MEDS: MEROPENEM INJ 1 GM in APPROPRIATE DILUENT 1 EA IV ×3 (05:03→21:48)
[2018-02-27 05:46] LABS: HEMATOCRIT 40.8 % (42.0-52.0); HEMOGLOBIN 14.2 g/dl (13.5-17.5); MEAN CORPUSCULAR HEMOGLOBIN 28.6 pg (27.0-33.0); MEAN CORPUSCULAR HGB CONC 34.8 g/dl (32.0-36.5); MEAN CORPUSCULAR VOLUME 82.3 fl (80.0-96.0); RED BLOOD COUNT 4.96 10^6/uL (4.30-6.10); RED CELL DISTRIBUTION WIDTH 16.4 % (11.5-14.5); WHITE BLOOD COUNT 3.5 10^3/uL (4.0-10.0)
[2018-02-27 05:48] LABS: PLATELET COUNT, AUTOMATED 33 10^3/uL (150-450)
[2018-02-27 05:49] LABS: IMMATURE PLATELET FRACTION % 14.3 % (0.0-10.9)
[2018-02-27 06:08] LABS: ALBUMIN 2.3 GM/DL (3.2-5.2); ALBUMIN/GLOBULIN RATIO 1.05 (1.00-1.93); ALKALINE PHOSPHATASE 179 U/L (45-117); ALT/SGPT 39 U/L (12-78); ANION GAP 7 MEQ/L (8-16); AST/SGOT 196 U/L (7-37); BILIRUBIN,TOTAL 4.4 MG/DL (0.2-1.0); BLOOD UREA NITROGEN 31 MG/DL (7-18); CALCIUM LEVEL 7.8 MG/DL (8.8-10.2); CARBON DIOXIDE LEVEL 24 MEQ/L (21-32); CHLORIDE LEVEL 103 MEQ/L (98-107); CREATININE FOR GFR 0.78 MG/DL (0.70-1.30); GLOMERULAR FILTRATION RATE > 60.0 (>35); GLUCOSE, FASTING 55 MG/DL (70-100); MAGNESIUM LEVEL 2.4 MG/DL (1.8-2.4); SODIUM LEVEL 134 MEQ/L (136-145); TOTAL PROTEIN 4.5 GM/DL (6.4-8.2)
[2018-02-27] MEDS ORDERED: DEXTROSE 50% 50 ML VIAL As Ordered (06:34)
[2018-02-27] MEDS ORDERED: DEXTROSE 50% 50 ML SYRINGE As Ordered (06:36)
[2018-02-27 06:43] LABS: BEDSIDE GLUCOSE 45 MG/DL (83-110)
[2018-02-27] MEDS: DEXTROSE 50% 50 ML SYRINGE IV (06:55)
[2018-02-27] MEDS ORDERED: GLUCAGON FOR INJ 1 MG VIAL (J1610) SC (07:00)
[2018-02-27] MEDS ORDERED: GLUCOSE 4 GM CHEW TABLET PO (07:00)
[2018-02-27 07:15] LABS: BEDSIDE GLUCOSE 128 MG/DL (83-110)
[2018-02-27] MEDS: SENOKOT S TAB PO ×2 (07:15→20:28)
[2018-02-27] MEDS: VANCOMYCIN HCL 1,000 MG, VIAL MATE ADAPTER 1 EACH in D5W 250 ML IV ×2 (07:37→19:47)
[2018-02-27] MEDS: COSOPT OCUMETER PLUS 10ML (DORZOLAMIDE/TIMOLOL) OU ×2 (09:34→20:28)
[2018-02-27] MEDS: EUCERIN 120GM CREAM TOP ×2 (09:35→20:28)
[2018-02-27] MEDS: ACETAMINOPHEN TAB 650MG DOSE (2X325MG) PO ×2 (09:36→16:38)
[2018-02-27 11:42] LABS: ABG BASE EXCESS -3.7 (-2.0-2.0); ABG HCO3 18.1 MEQ/L (22.0-26.0); ABG O2 SATURATION 95.5 % (95.0-99.0); ABG PARTIAL PRESSURE CO2 25.5 mmHg (35.0-45.0); ABG PARTIAL PRESSURE O2 70.7 mmHg (75.0-100.0); ABG STANDARD HCO3 21.4 MEQ/L (22.0-26.0); ABG TOTAL CO2 18.9 MEQ/L (23.0-31.0); ABG pH (ARTERIAL) 7.469 UNITS (7.350-7.450)
[2018-02-27] MEDS: DIGOXIN 0.25 MG TAB PO (20:28)
[2018-02-27] MEDS: ASPIRIN 81 MG ENTERIC TAB PO (20:28)
[2018-02-27] MEDS: LATANOPROST 0.005% OPHTH SOLN 2.5 ML OU (20:28)
[2018-02-28 00:07] LABS: HEPARIN INDUCED PLATELET ABY 0.223 OD (0.000-0.400)
[2018-02-28] MEDS: MEROPENEM INJ 1 GM in APPROPRIATE DILUENT 1 EA IV (05:23)
[2018-02-28] MEDS: SODIUM CHLORIDE 0.9% INJ 10 ML SYR IV ×3 (05:23→22:09)
[2018-02-28 05:33] LABS: HEMATOCRIT 38.5 % (42.0-52.0); HEMOGLOBIN 13.4 g/dl (13.5-17.5); MEAN CORPUSCULAR HEMOGLOBIN 28.3 pg (27.0-33.0); MEAN CORPUSCULAR HGB CONC 34.8 g/dl (32.0-36.5); MEAN CORPUSCULAR VOLUME 81.4 fl (80.0-96.0); RED BLOOD COUNT 4.73 10^6/uL (4.30-6.10); RED CELL DISTRIBUTION WIDTH 16.7 % (11.5-14.5); WHITE BLOOD COUNT 6.3 10^3/uL (4.0-10.0)
[2018-02-28 05:35] LABS: PLATELET COUNT, AUTOMATED 29 10^3/uL (150-450); POS COUNT POS FLAG
[2018-02-28 05:36] LABS: IMMATURE PLATELET FRACTION % 14.8 % (0.0-10.9)
[2018-02-28 06:04] LABS: ALBUMIN 2.2 GM/DL (3.2-5.2); ALBUMIN/GLOBULIN RATIO 1.05 (1.00-1.93); ALKALINE PHOSPHATASE 240 U/L (45-117); ALT/SGPT 40 U/L (12-78); ANION GAP 8 MEQ/L (8-16); AST/SGOT 205 U/L (7-37); BILIRUBIN,TOTAL 6.1 MG/DL (0.2-1.0); BLOOD UREA NITROGEN 32 MG/DL (7-18); CALCIUM LEVEL 7.8 MG/DL (8.8-10.2); CARBON DIOXIDE LEVEL 25 MEQ/L (21-32); CHLORIDE LEVEL 99 MEQ/L (98-107); CREATININE FOR GFR 0.82 MG/DL (0.70-1.30); GLOMERULAR FILTRATION RATE > 60.0 (>35); GLUCOSE, FASTING 88 MG/DL (70-100); MAGNESIUM LEVEL 2.4 MG/DL (1.8-2.4); SODIUM LEVEL 132 MEQ/L (136-145); TOTAL PROTEIN 4.3 GM/DL (6.4-8.2)
[2018-02-28] MEDS: VANCOMYCIN HCL 1,000 MG, VIAL MATE ADAPTER 1 EACH in D5W 250 ML IV (08:28)
[2018-02-28] MEDS: ROSUVASTATIN 10 MG TAB (CRESTOR) PO (08:28)
[2018-02-28] MEDS: SENOKOT S TAB PO ×2 (08:28→22:08)
[2018-02-28] MEDS: EUCERIN 120GM CREAM TOP ×2 (08:29→22:09)
[2018-02-28] MEDS: COSOPT OCUMETER PLUS 10ML (DORZOLAMIDE/TIMOLOL) OU (08:29)
[2018-02-28 10:05] LABS: REASON FOR REVIEW PLATELET MORPHOLOGY; SLIDE REVIEW Report; SOURCE PERIPHERAL SMEAR
[2018-02-28 10:38] LABS: PLTBLUE- EDTA FREE CALC 33 K/mm3 (172-450); PLTBLUE- EDTA FREE MACHINE 30 10^3/uL (172-450)
[2018-02-28] MEDS ORDERED: ATROPINE SULFATE 1% OP SOLN 2 ML BTL SL (12:30)
[2018-02-28] MEDS: LORazepam 2 MG/ML VIAL (J2060) IV (12:46)
[2018-02-28 13:03] LABS: BEDSIDE GLUCOSE 89 MG/DL (83-110)
[2018-02-28] MEDS: MORPHINE 4 MG/ML 1ML VIAL/SYRINGE (J2270) IV (16:28)
[2018-03-01] MEDS: SODIUM CHLORIDE 0.9% INJ 10 ML SYR IV ×4 (06:26→21:49)
[2018-03-01] MEDS: SENOKOT S TAB PO ×2 (09:00→21:34)
[2018-03-01] MEDS: EUCERIN 120GM CREAM TOP ×2 (09:00→21:34)
[2018-03-01] MEDS: MORPHINE 4 MG/ML 1ML VIAL/SYRINGE (J2270) IV ×2 (10:39→21:48)
[2018-03-02] MEDS: MORPHINE 4 MG/ML 1ML VIAL/SYRINGE (J2270) IV ×4 (02:06→17:40)
[2018-03-02] MEDS: SODIUM CHLORIDE 0.9% INJ 10 ML SYR IV ×5 (02:07→21:51)
[2018-03-02] MEDS: EUCERIN 120GM CREAM TOP ×2 (09:00→21:50)
[2018-03-02] MEDS: SENOKOT S TAB PO ×2 (09:00→21:50)
[2018-03-03] MEDS: SODIUM CHLORIDE 0.9% INJ 10 ML SYR IV ×3 (05:21→21:42)
[2018-03-03] MEDS: MORPHINE 4 MG/ML 1ML VIAL/SYRINGE (J2270) IV ×2 (08:07→12:24)
[2018-03-03] MEDS: SENOKOT S TAB PO ×2 (08:42→20:38)
[2018-03-03] MEDS: EUCERIN 120GM CREAM TOP ×2 (09:00→21:43)
[2018-03-03] MEDS: SCOPOLAMINE 1MG TRANSDERMAL PATCH TOP (12:17)
[2018-03-04] MEDS: SODIUM CHLORIDE 0.9% INJ 10 ML SYR IV ×3 (05:52→20:46)
[2018-03-04] MEDS: SENOKOT S TAB PO ×2 (09:00→19:29)
[2018-03-04] MEDS: EUCERIN 120GM CREAM TOP ×2 (11:37→20:47)
[2018-03-04] MEDS: MORPHINE 4 MG/ML 1ML VIAL/SYRINGE (J2270) IV ×2 (13:55→20:47)
[2018-03-04] MEDS: LORazepam 2 MG/ML VIAL (J2060) IV (15:51)
[2018-03-05] MEDS: SODIUM CHLORIDE 0.9% INJ 10 ML SYR IV ×2 (05:01→15:21)
[2018-03-05] MEDS: SENOKOT S TAB PO ×2 (08:06→20:00)
[2018-03-05] MEDS: MORPHINE 4 MG/ML 1ML VIAL/SYRINGE (J2270) IV (08:07)
[2018-03-05] MEDS: EUCERIN 120GM CREAM TOP ×2 (08:08→20:00)
== END 2018-03-05 20:37 | disposition expired | DRG 872 ==
LOC: M MSPAV 02-28 16:15 → M ED 14:44 → M ED INP 17:17 → M ICU 18:05
PROC: 02H633Z Insertion of Infusion Device into Right Atrium, Percutaneous Approach (ICD-10-PCS; principal; 2018-02-23)
PROC: 0W9930Z Drainage of Right Pleural Cavity with Drainage Device, Percutaneous Approach (ICD-10-PCS; 2018-02-26)
DX: A41.9 Sepsis, unspecified organism (principal); R18.8 Other ascites; I50.22 Chronic systolic (congestive) heart failure; J90 Pleural effusion, not elsewhere classified; E87.2 Acidosis; I25.110 Atherosclerotic heart disease of native coronary artery with unstable angina pectoris; Z66 Do not resuscitate; Z51.5 Encounter for palliative care; D69.6 Thrombocytopenia, unspecified; R65.10 Systemic inflammatory response syndrome (SIRS) of non-infectious origin without acute organ dysfunction; I50.810 Right heart failure, unspecified; R62.7 Adult failure to thrive; K76.1 Chronic passive congestion of liver; G50.0 Trigeminal neuralgia; I83.019 Varicose veins of right lower extremity with ulcer of unspecified site; I83.029 Varicose veins of left lower extremity with ulcer of unspecified site; K21.9 Gastro-esophageal reflux disease without esophagitis; E78.5 Hyperlipidemia, unspecified; I48.91 Unspecified atrial fibrillation; I49.5 Sick sinus syndrome; I36.1 Nonrheumatic tricuspid (valve) insufficiency; I27.29 Other secondary pulmonary hypertension; Z88.8 Allergy status to other drugs, medicaments and biological substances; Z98.41 Cataract extraction status, right eye; Z98.42 Cataract extraction status, left eye; Z79.82 Long term (current) use of aspirin; Z79.02 Long term (current) use of antithrombotics/antiplatelets; Z79.899 Other long term (current) drug therapy; Z95.0 Presence of cardiac pacemaker